=== PATIENT | male | born 1960 | race Caucasian/White ===

== ENCOUNTER 2016-10-02 18:41 | Inpatient (IN) | payer OTHER ==
[~2016-10-02 18:41] MED LIST: ROCURONIUM BROMIDE INJ 50 MG/5 ML VIAL IV ONE; SUCCINYLCHOLINE CHLORIDE INJ 200 MG/10 ML VIAL ONE
[2016-10-02] MEDS ORDERED: OXYCODONE-ACETAMINOPHEN 5-325 MG TABLET PO ONE (18:50)
[2016-10-02] MEDS ORDERED: MORPHINE SULFATE 10 MG/ML INJ IV ONE ×3 (18:50→20:38)
--- NOTE | 2016-10-02 19:04 | ER Document Report ---
ED Medical Screen (RME) - General Stated Complaint: FOOT INJURY Time Seen by Provider: 10/02/16 18:50 Notes: 56-year-old male who presents with right ankle pain and bleeding from wound after he fell off a ladder. His tetanus is up-to-date. PE: Medial right ankle laceration with ankle deformity. Bleeding controlled. I have greeted and performed a rapid initial assessment of this patient. A comprehensive ED assessment and evaluation of the patient, analysis of test results and completion of the medical decision making process will be conducted by additional ED providers.
--- NOTE | 2016-10-02 19:22 | RADIOLOGY REPORT (SQ) ---
EXAM DESCRIPTION: ANKLE RIGHT COMPLETE COMPLETED DATE/TIME: 10/02/2016 7:09 pm REASON FOR STUDY: right ankle injury COMPARISON: None. NUMBER OF VIEWS: Two views of the right ankle. LIMITATIONS: None. FINDINGS: Marked fracture dislocation. Comminuted fracture through the distal tibia with posterior displacement. Tibia is shifted medially with respect to the talar dome. Displaced medial malleolus fracture. Comminuted angulated distal fibula fracture. The fibula is angulated laterally. No defin itive talar dome fracture. Calcaneus and visualized midfoot looks intact. OTHER: No other significant finding. IMPRESSION: Severe ankle fracture dislocation. TECHNICAL DOCUMENTATION: JOB ID: [id number]
[2016-10-02] MEDS ORDERED: CEFAZOLIN 1 GM/D5W RTU 50 ML IV ONE (19:29)
[2016-10-02 20:00] LABS: ABSOLUTE BASOPHILS # (AUTO) 0.1 10^3/uL (0.0-0.2); ABSOLUTE EOSINOPHILS # (AUTO) 0.1 10^3/uL (0.0-0.6); ABSOLUTE LYMPHOCYTES (AUTO) 1.7 10^3/uL (0.5-4.7); ABSOLUTE MONOCYTES (AUTO) 0.6 10^3/uL (0.1-1.4); ABSOLUTE NEUT (AUTO) 5.7 10^3/uL (1.7-8.2); BASOPHILS % (AUTO) 0.9 % (0-2); EOSINOPHILS % (AUTO) 0.8 % (0-6); HEMATOCRIT 41.7 % (37.9-51.0); HEMOGLOBIN 13.3 g/dL (13.5-17.0); HGB HCT DIFFERENCE -1.8; LYMPHOCYTES % (AUTO) 21.3 % (13-45); MEAN CORPUSCULAR HEMOGLOBIN 27.4 pg (27.0-33.4); MEAN CORPUSCULAR HGB CONC 31.9 g/dL (32.0-36.0); MEAN CORPUSCULAR VOLUME 86 fl (80-97); MONOCYTES % (AUTO) 7.6 % (3-13); RED BLOOD COUNT 4.85 10^6/uL (4.35-5.55); RED CELL DISTRIBUTION WIDTH 13.8 % (11.5-14.0); SEGMENTED NEUTROPHILS % (AUTO) 69.4 % (42-78); WHITE BLOOD COUNT 8.2 10^3/uL (4.0-10.5)
--- NOTE | 2016-10-02 20:00 | ER Document Report ---
ED Extremity Problem, Lower - General Chief Complaint: Fall Injury Stated Complaint: FOOT INJURY Time Seen by Provider: 10/02/16 18:50 Notes: Patient fell from a ladder about 10 feet above ground just prior to arrival here in the emergency department. He is unable to bear weight on an obviously fractured right ankle. It is an open fracture with a portion of the fractured medial malleolus protruding through the skin. Patient has no other injuries. Denies any head, neck, chest, or abdomen injury. Patient denies any medical history of significance. Is on no medications. No history of heart disease. - Related Data Allergies/Adverse Reactions: No Known Allergies Allergy (Unverified 10/02/16 19:59) Past Medical History - Social History Smoking Status: Unknown if Ever Smoked Cigarette use (# per day): No Family History: Reviewed & Not Pertinent - Past Medical History Cardiac Medical History: Denies: Hx Coronary Artery Disease Endocrine Medical History: Denies: Hx Diabetes Mellitus Type 2 Review of Systems - Review of Systems Notes: REVIEW OF SYSTEMS: CONSTITUTIONAL : Denies fever. EENT: Denies eye, ear, nose or mouth or throat pain or other symptoms. CARDIOVASCULAR: Denies chest pain. RESPIRATORY: Denies cough, chest congestion, or shortness of breath. GASTROINTESTINAL: Denies abdominal pain or nausea, vomiting, or diarrhea. GENITOURINARY: Denies difficulty or painful urinating, urinary frequency, blood in urine. MUSCULOSKELETAL: Denies back or neck pain. See HPI. SKIN: Denies rash or skin lesions. NEUROLOGICAL: Denies LOC or altered mental status. Denies headache. Denies sensory loss or motor deficits. ALL OTHER SYSTEMS REVIEWED AND NEGATIVE. Physical Exam - Vital signs Vitals: Resp Pulse Ox 14 100 10/02/16 19:29 10/02/16 19:29 - Notes Notes: PHYSICAL EXAMINATION: GENERAL: Well-appearing, in apparent pain. HEAD: Atraumatic, normocephalic. EYES: Pupils equal round and reactive to light, extraocular movements intact. ENT: oropharynx clear without exudates. Moist mucous membranes. NECK: Normal range of motion, supple. LUNGS: Breath sounds clear and equal bilaterally. HEART: Regular rate and rhythm without murmurs. ABDOMEN: Soft, nontender. No guarding or rebound. BACK: No tenderness throughout entire back. EXTREMITIES: Right ankle swollen, deformed with dislocation laterally of the foot and a open 5 cm laceration over the distal medial malleolus with the bone protruding through the skin at that location. Good dorsalis pedis pulse present. NEUROLOGICAL: Normal speech, normal gait. Normal sensory, motor, and reflex exams. Awake, alert, and oriented x3. Cranial nerves normal. PSYCH: Normal mood, normal affect. SKIN: Warm, dry, no rashes. Course - Re-evaluation Re-evalutation: 10/02/16 19:[address] Hart,, acquisition associate orthopedics. He will come to see the patient and I anticipate take him to the OR. I irrigated the open wound medially with 1 L of saline and then applied wet gauze pads. Antibiotics have been started. - Vital Signs Vital signs: Temp Pulse Resp BP Pulse Ox 28 H 147/87 H 96 10/02/16 20:00 10/02/16 19:31 10/02/16 20:00 - Laboratory Result Diagrams: 10/02/16 19:00 10/02/16 19:00 Laboratory results interpreted by me: 10/02/16 10/02/16 10/02/16 19:00 19:00 19:00 Hgb 13.3 L MCHC 31.9 L APTT 23.0 L Creatinine 1.53 H Est GFR ( Amer) 57 L Est GFR (Non-Af Amer) 47 L Glucose 165 H Discharge - Discharge Clinical Impression: Fracture dislocation of right ankle Qualifiers: Encounter type: initial encounter Fracture type: open Open fracture type: open type III Qualified Code(s): S82.891C - Other fracture of right lower leg, initial encounter for open fracture type IIIA, IIIB, or IIIC Disposition: ADMITTED INPATIENT Admitting Provider: Marisa Unit Admitted: OR
[2016-10-02 20:03] LABS: PROTHROMBIN TIME 11.8 SEC (11.4-15.4)
[2016-10-02 20:10] LABS: ALANINE AMINOTRANSFERASE 29 U/L (21-72); ALBUMIN 3.9 g/dL (3.5-5.0); ALKALINE PHOSPHATASE 62 U/L (38-126); ANION GAP 11 (5-19); ASPARTATE AMINO TRANSFERASE 21 U/L (17-59); BILIRUBIN,DIRECT 0.3 mg/dL (0.0-0.4); BILIRUBIN,TOTAL 0.4 mg/dL (0.2-1.3); BLOOD UREA NITROGEN 18 mg/dL (7-20); CALCIUM 9.5 mg/dL (8.4-10.2); CARBON DIOXIDE 26 mmol/L (22-30); CHLORIDE 104 mmol/L (98-107); CREATININE RESULT 1.53 mg/dL (0.52-1.25); GLUCOSE 165 mg/dL (75-110); POTASSIUM 4.7 mmol/L (3.6-5.0); SODIUM 140.5 mmol/L (137-145); TOTAL PROTEIN 6.6 g/dL (6.3-8.2)
[2016-10-02] MEDS ORDERED: RINGERS SOLUTION,LACTATED 1,000 ML IV PRN (20:27)
[2016-10-02] MEDS ORDERED: FENTANYL CITRATE INJ/PF 250 MCG/5 ML AMPULE ONE (20:50)
[2016-10-02] MEDS ORDERED: HYDROMORPHONE HCL INJ/PF 2 MG/ML AMPULE ONE (20:50)
[2016-10-02] MEDS ORDERED: MIDAZOLAM 2 MG/2 ML INJ ONE (20:51)
[2016-10-02] MEDS ORDERED: PROPOFOL INJ 200 MG/20 ML VIAL IV ONE (20:51)
[2016-10-02] MEDS ORDERED: BACITRACIN INJ 50,000 UNIT VIAL ONE (20:51)
[2016-10-02] MEDS ORDERED: ACETAMINOPHEN 100 ML IV ONE (20:51)
[2016-10-02] MEDS ORDERED: POLYMYXIN B SULFATE INJ 500000 UNIT VIAL ONE (20:51)
--- NOTE | 2016-10-02 21:05 | PDOC H&P ---
History of Present Illness Admission Date/PCP: 10/02/16 20:23 Patient complains of: Right Ankle Injury History of Present Illness: EVANGELISTA YIN is a 56 year old male who was on a ladder and sustained a fall onto his right ankle. Patient had significant soft tissue injury and open wound along with deformity and was unable to weight-bear. He was brought immediately to the emergency room by his [id number]. While in the emergency room he received IV Ancef and the bone was found to be protruding from the skin this area was irrigated by the emergency room physician. Currently pain 6/10. Denies numbness or tingling. Past Medical History Cardiac Medical History: Denies: Coronary Artery Disease Endocrine Medical History: Denies: Diabetes Mellitus Type 2 Social History Smoking Status: Unknown if Ever Smoked - Advance Directive Resuscitation Status: Full Code Family History Family History: Reviewed & Not Pertinent Parental Family History Reviewed: Yes Children Family History Reviewed: Yes Sibling(s) Family History Reviewed.: Yes Medication/Allergy Allergies/Adverse Reactions: No Known Allergies Allergy (Unverified 10/02/16 19:59) Review of Systems All systems: as per PMH Constitutional: ABSENT: chills, fever(s), headache(s), weight gain, weight loss Eyes: ABSENT: visual disturbances Ears: ABSENT: hearing changes Cardiovascular: ABSENT: chest pain, dyspnea on exertion, edema, orthropnea, palpitations Respiratory: ABSENT: cough, hemoptysis Gastrointestinal: ABSENT: abdominal pain, constipation, diarrhea, hematemesis, hematochezia, nausea, vomiting Genitourinary: ABSENT: dysuria, hematuria Musculoskeletal: PRESENT: as per HPI Integumentary: ABSENT: rash, wounds Neurological: ABSENT: abnormal gait, abnormal speech, confusion, dizziness, focal weakness, syncope Psychiatric: ABSENT: anxiety, depression, homidical ideation, suicidal ideation Endocrine: ABSENT: cold intolerance, heat intolerance, menstrual abnormalities, polydipsia, polyuria Hematologic/Lymphatic: ABSENT: easy bleeding, easy bruising, lymphadenopathy Physical Exam Vital Signs: Temp Pulse Resp BP Pulse Ox 98.7 F 103 H 18 157/104 H 96 10/02/16 20:41 10/02/16 20:41 10/02/16 20:41 10/02/16 20:41 10/02/16 20:41 General appearance: PRESENT: no acute distress, well-developed, well-nourished Head exam: PRESENT: atraumatic, normocephalic Eye exam: PRESENT: conjunctiva pink, EOMI, PERRLA. ABSENT: scleral icterus Ear exam: PRESENT: normal external ear exam Mouth exam: PRESENT: moist, tongue midline Neck exam: PRESENT: full ROM. ABSENT: carotid bruit, JVD, lymphadenopathy, thyromegaly Respiratory exam: PRESENT: unlabored Cardiovascular exam: PRESENT: RRR. ABSENT: diastolic murmur, rubs, systolic murmur Pulses: PRESENT: +1 pedal pulses bilateral Vascular exam: PRESENT: normal capillary refill GI/Abdominal exam: PRESENT: normal bowel sounds, soft. ABSENT: distended, guarding, mass, organolmegaly, rebound, tenderness Rectal exam: PRESENT: deferred Musculoskeletal exam: PRESENT: other - Right ankle: Wet-to-dry dressing change was removed demonstrating 5 cm transverse laceration at the level of the medial malleolus bone currently not proceeding from the skin but visualized through the soft tissue injury. Intact flexion extension of the toes. Patient has hypoesthesia along the dorsum of the foot but intact sensation to light touch. Dorsalis pedis pulse one plus. Cap refill less than 2 seconds. Neurological exam: PRESENT: alert, awake, oriented to person, oriented to place , oriented to time, oriented to situation, CN II-XII grossly intact. ABSENT: motor sensory deficit Psychiatric exam: PRESENT: appropriate affect, normal mood. ABSENT: homicidal ideation, suicidal ideation Skin exam: PRESENT: dry, intact, warm. ABSENT: cyanosis, rash Results Impressions: Ankle X-Ray 10/02/16 18:50 IMPRESSION: Severe ankle fracture dislocation. Status: Image reviewed by me - I have reviewed patient's radiographs which demonstrate severely comminuted distal tibia fracture with associated segmental comminuted lateral malleolus fracture and transverse medial malleolus fracture. Assessment & Plan - Diagnosis (1) Open fracture of distal end of tibia Qualifiers: Encounter type: initial encounter Open fracture type: open type I or II Fracture morphology: pilon Fracture alignment: displaced Laterality: right Qualified Code(s): S82.871B - Displaced pilon fracture of right tibia, initial encounter for open fracture type I or II Is this a current diagnosis for this admission?: YesPlan: Given the amount of comminution at the tibial plafond this is more consistent with a Pilon fracture as opposed to actual fracture dislocation of the ankle. Given the amount of energy required to cause such a fracture patient requires emergent operative intervention to stabilize the ankle and cleansed the wound thoroughly in the operating room suite. We discussed treatment options along prognosis and risks. Patient understands he is at increased risk for posttraumatic arthritis, decreased range of motion, infection and possible worst -case scenario amputation. Currently the plan is to proceed with irrigation and debridement of the open fracture with external fixation possible open reduction internal fixation of the lateral malleolus this depends on patient's global soft tissue injury. Patient will continue Ancef for 48-72 hours. We discussed he will require repeat operative intervention for definitive fixation which may be during this admission or may require second admission. Risks and benefits of the surgical procedure have been explained to the patient including anesthetic complications, excessive bleeding, infection, injury to surrounding nerves, vessels and tendons, bruising, healing difficulties, scar formation, posttraumatic arthritis and any unforseen complication, patient has verbalized understanding and consented for the procedure. (2) Open dislocation of distal tibia Qualifiers: Encounter type: initial encounter Laterality: right Qualified Code(s): S93.04XA - Dislocation of right ankle joint, initial encounter; S91.001A - Unspecified open wound, right ankle, initial encounter Is this a current diagnosis for this admission?: Yes
[2016-10-02] MEDS ORDERED: FENTANYL CITRATE INJ/PF 100 MCG/2 ML AMPUL IV PRN ×3 (21:36)
[2016-10-02] MEDS ORDERED: DIPHENHYDRAMINE HCL 50 MG/ML VIAL IV PRN (21:36)
[2016-10-02] MEDS ORDERED: MEPERIDINE HCL/PF INJ 25 MG/1 ML DISP.SYRIN IV PRN (21:36)
[2016-10-02] MEDS ORDERED: MORPHINE SULFATE 10 MG/ML INJ IV PRN (21:36)
[2016-10-02] MEDS ORDERED: PROMETHAZINE HCL INJ 25 MG/1 ML VIAL IV PRN (21:36)
--- NOTE | 2016-10-02 22:50 | RADIOLOGY REPORT (SQ) ---
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 FLUOROSCOPY TIME: 0.7 minutes 4 images saved to PACS. TECHNIQUE: Intra-operative images acquired during surgical procedure to evaluate progress. NUMBER OF IMAGES: For LIMITATIONS: None. FINDINGS: Fluoroscopic images show reduction of the fracture/dislocation with more anatomic appearan ce. IMPRESSION: IMAGE(S) OBTAINED DURING PROCEDURE. COMMENT: Quality ID [id number]: Final reports for procedures using fluoroscopy that document radiation exp osure indices, or exposure time and number of fluorographic images (if radiation exposure indices are not available) Please consult full operative report of the attending physician for description of the procedure. TECHNICAL DOCUMENTATION: JOB ID: [id number] [employer]- All Rights Reserved
--- NOTE | 2016-10-02 22:50 | RADIOLOGY REPORT (SQ) ---
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 FLUOROSCOPY TIME: 0.7 minutes 4 images saved to PACS. TECHNIQUE: Intra-operative images acquired during surgical procedure to evaluate progress. NUMBER OF IMAGES: For LIMITATIONS: None. FINDINGS: Fluoroscopic images show reduction of the fracture/dislocation with more anatomic appearan ce. IMPRESSION: IMAGE(S) OBTAINED DURING PROCEDURE. COMMENT: Quality ID [id number]: Final reports for procedures using fluoroscopy that document radiation exp osure indices, or exposure time and number of fluorographic images (if radiation exposure indices are not available) Please consult full operative report of the attending physician for description of the procedure. TECHNICAL DOCUMENTATION: JOB ID: [id number] [employer]- All Rights Reserved
[2016-10-02] MEDS ORDERED: ONDANSETRON HCL INJ/PF 4 MG/2 ML SDV IV PRN (22:54)
--- NOTE | 2016-10-02 23:05 | Operative Report ---
Operative Report DATE OF SURGERY: 10/02/16 PREOPERATIVE DIAGNOSIS: Grade II Open Distal Tibia Fracture w/ Lateral/Medial Malleolar Fracture POSTOPERATIVE DIAGNOSIS: Same OPERATION: Excisional Debridement Right Ankle Open Fracture Dislocation. External Fixation Right Ankle SURGEON: KOSTA THAKUR ANESTHESIA: GA COMPLICATIONS: None ESTIMATED BLOOD LOSS: Minimal PROCEDURE: Indication for above procedure: 56-year-old male who fell 10 feet onto his right ankle. Patient was brought to the emergency room where he was found to have an open fracture dislocation of his ankle. Patient seen and evaluated emergency room we discussed treatment options including participation injury and severity of his injury. Risks and benefits were explained the patient patient verbalized and consented to the procedure. Procedure In Detail: Patient was seen and evaluated in the preoperative holding area. The RIGHT lower extremity was initialized and marked. Patient received Ancef IV for bacterial prophylaxis in the emergency room. Patient was taken back to the operative room where transferred to the operative table and placed under general anesthesia. Once they were adequately anesthetized a nonsterile tourniquet was placed on the lower extremity. A surgical team debriefing was performed ensuring all instrumentation was available, the surgical procedure was discussed with possible concerns reviewed. The lower extremity was prepped with Betadine prep and draped in a sterile fashion. A timeout was done identifying correct patient, procedure and extremity everyone in attendance agree with this and verbalized no concerns. The extremity was elevated the tourniquet was inflated to 300 mmHg. Patient's medial wound was measured to be 5.5 cm. There is no gross contamination however the bone was exposed. A curette was utilized to debride the edges of the medial malleolus and the fracture fragments. Dissection of the fracture fragments was not undertaken to avoid devascularization. The wound was copiously irrigated with 3 L of saline first liter had bacitracin and this was done with gravity irrigation. Once this was complete I turned my attention to external fixation. With C-arm fluoroscopy skin incision was made along the anterior aspect of the tibia blunt dissection was performed with a hemostat and a half pin was placed. The first half and described along the lateral cortex this was then removed a second half pin was placed centrally. Using the measuring device a second half pin was placed proximally once again skin incision blunt dissection was performed with a hemostat. Lateral view was obtained central placement of the tibial pins and appropriate length. I then proceeded with placement of the calcaneal pin. The distance between the medial malleolus and posterior aspect of the calcaneus was measured fdc between this point was marked fdc for this point to the posterior calcaneus second point was marked C-arm fluoroscopy was obtained confirming appropriate placement of the calcaneal pin. Skin incision was made blunt dissection with hemostat was performed calcaneal pin was placed parallel to the ankle mortise this was confirmed with C-arm fluoroscopy was obtained with the lateral side a skin incision was made blunt dissection was performed and the pin was continued laterally. Once complete I proceeded with reduction of the fracture. Two bars were placed one medial and one lateral fixated proximally and distally traction was performed and this was secured. C-arm fluoroscopy was obtained AP and lateral demonstrated appropriate length with reduction of the fracture in AP view however there was significant comminution with a sagittal split along the articular surface but the alignment between the talus and posterior malleolus fragment was maintained but to obtain better fixation and stability I then proceeded with placement of a second half pin along the central axis of the first metatarsal. C-arm fluoroscopy was obtained to confirm appropriate placement of the pins blunt dissection was performed with a hemostat and pin was placed to the appropriate length confirmed with lateral view. With placement of the stent a second bar was placed secured to the lateral border which provide any more rotational stability and successfully reduced the anterior articular fragment and a better anatomic position however it was not anatomic. Final C-arm fluoroscopy was obtained which demonstrated acceptable reduction of the ankle mortise given the nature of patient's injury appropriate alignment on AP view. I once again irrigated the medial wound. It was loosely closed with three sutures of 3-0 nylon suture however the central aspect was left open to allow drainage. The wound was then dressed with Xeroform and Kerlix. Tourniquet was then deflated patient had palpable dorsalis pedis pulse 2+ with normal capillary refill. Finally a kickstand was placed posteriorly to avoid heel irritation postoperatively. Sponge counts, instrument counts, needle counts counts were correct. Patient was then awoken from anesthesia. Transferred from the operating room table to the operating room stretcher. There was no intraoperative complications patient tolerated procedure well stable to PACU. Postoperative plan: Patient will be started on antibiotics which she will continue for 48-72 hours plan will be returned to the operating room at some juncture for final fixation will also consider possible CT scan.
[2016-10-03] MEDS ORDERED: CEFAZOLIN 2 GM/D5W RTU 50 ML IV SCH
[2016-10-03] MEDS ORDERED: CEFAZOLIN INJ 1 GM VIAL ONE (02:28)
[2016-10-03] MEDS: CEFAZOLIN 2 GM/D5W RTU 2 GM/50 ML RTUPB IV SCH ×5 (02:35→23:55)
[2016-10-03 05:12] LABS: HEMATOCRIT 33.8 % (37.9-51.0); HGB HCT DIFFERENCE -0.5; MEAN CORPUSCULAR HGB CONC 32.7 g/dL (32.0-36.0); MEAN CORPUSCULAR VOLUME 86 fl (80-97); RED BLOOD COUNT 3.96 10^6/uL (4.35-5.55); RED CELL DISTRIBUTION WIDTH 13.7 % (11.5-14.0); WHITE BLOOD COUNT 11.5 10^3/uL (4.0-10.5)
[2016-10-03 05:14] LABS: HEMOGLOBIN 11.1 g/dL (13.5-17.0)
[2016-10-03 05:21] LABS: ANION GAP 8 (5-19); BLOOD UREA NITROGEN 16 mg/dL (7-20); CALCIUM 8.2 mg/dL (8.4-10.2); CARBON DIOXIDE 24 mmol/L (22-30); CHLORIDE 104 mmol/L (98-107); GLUCOSE 155 mg/dL (75-110); POTASSIUM 4.4 mmol/L (3.6-5.0); SODIUM 136.4 mmol/L (137-145)
--- NOTE | 2016-10-03 07:55 | PDOC PROGRESS REPORT ---
Subjective Progress Note for:: 10/03/16 Subjective:: Patient seen this morning. No issues overnight. Pain controlled. Physical Exam Vital Signs: Temp Pulse Resp BP Pulse Ox 97.4 F 77 16 102/67 98 10/03/16 04:21 10/03/16 04:21 10/03/16 04:21 10/03/16 04:21 10/03/16 04:21 Intake & Output 10/02/16 10/03/16 10/04/16 06:59 06:59 06:59 Intake Total 5440 Output Total 3025 Balance 2415 General appearance: PRESENT: no acute distress Musculoskeletal exam: PRESENT: other - Right lower extremity: Bloody drainage from the medial wound. Pin sites clean/dry/intact. Dorsalis pedis pulse 2+. Cap refill less than 2 seconds. No sensory deficits. Intact flexion extension of the toes. Results Laboratory Results: 10/03/16 04:32 10/03/16 04:32 10/03/16 10/03/16 04:32 04:32 WBC 11.5 H RBC 3.96 L Hgb 11.1 L D Hct 33.8 L MCV 86 MCH 28.0 MCHC 32.7 RDW 13.7 Plt Count 193 Sodium 136.4 L Potassium 4.4 Chloride 104 Carbon Dioxide 24 Anion Gap 8 BUN 16 Creatinine 1.10 Est GFR ( Amer) > 60 Est GFR (Non-Af Amer) > 60 Glucose 155 H Calcium 8.2 L Impressions: Fluoroscopy 10/02/16 00:00 IMPRESSION: IMAGE(S) OBTAINED DURING PROCEDURE. Ankle X-Ray 10/02/16 18:50 IMPRESSION: Severe ankle fracture dislocation. Assessment & Plan - Diagnosis (1) Open fracture of distal end of tibia Qualifiers: Encounter type: initial encounter Open fracture type: open type I or II Fracture morphology: pilon Fracture alignment: displaced Laterality: right Qualified Code(s): S82.871B - Displaced pilon fracture of right tibia, initial encounter for open fracture type I or II Is this a current diagnosis for this admission?: YesPlan: Status post closed reduction external fixation with irrigation and debridement open fracture distal tibia #1 continue Ancef IV for 48 hours. #2 Xarelto for DVT prophylaxis #3 we will obtain a CT scan to further delineate intra-articular fragment. #4 anticipate final fixation on 10/05/16 (2) Open dislocation of distal tibia Qualifiers: Encounter type: initial encounter Laterality: right Qualified Code(s): S93.04XA - Dislocation of right ankle joint, initial encounter; S91.001A - Unspecified open wound, right ankle, initial encounter Is this a current diagnosis for this admission?: Yes
--- NOTE | 2016-10-03 10:17 | PDOC CONSULTATION ---
Consultation Consult Date: 10/03/16 Attending physician:: KOSTA THAKUR Consult reason:: Hyperglycemia, leukocytosis History of Present Illness Admission Date/PCP: 10/02/16 20:58 Patient complains of: Ankle pain History of Present Illness: EVANGELISTA YIN is a 56 year old male who was on a ladder and sustained a fall onto his right ankle. Patient had significant soft tissue injury and open wound along with deformity and was unable to weight-bear. He was brought immediately to the emergency room by his [id number]. While in the emergency room he received IV Ancef and the bone was found to be protruding from the skin this area was irrigated by the emergency room physician. Currently pain 6/10. Denies numbness or tingling. Patient underwent excisional debridement and external fixation on the right ankle and is going for final fixation on 10/05/2016. While in the [place] the patient was noted to have hyperglycemia and mildly elevated WBC. A consultation was made to evaluate for medical conditions. Patient denies any history of any illness. 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 Patient has a little bit of a cough but no shortness of breath or purulent expectoration. There is no shortness of breath. No dysuria urgency or frequency. Denies any hematuria. Denies any diarrhea. No sinus congestion. No headaches nor any rash. Patient is not on steroids. Past Medical History Cardiac Medical History: Reports: None Denies: Coronary Artery Disease Endocrine Medical History: Denies: Diabetes Mellitus Type 2 Psychiatric Medical History: Denies: Depression Past Surgical History Past Surgical History: Reports: None Social History Information Source: Patient Smoking Status: Never Smoker Frequency of Alcohol Use: None Hx Recreational Drug Use: No Drugs: None Hx Prescription Drug Abuse: No - Advance Directive Resuscitation Status: Full Code Family History Family History: DM Parental Family History Reviewed: Yes Children Family History Reviewed: Yes Sibling(s) Family History Reviewed.: Yes Medication/Allergy Home Medications: No Home Medications 10/03/16 Allergies/Adverse Reactions: No Known Allergies Allergy (Verified 10/02/16 21:12) Review of Systems Constitutional: ABSENT: chills, fever(s), headache(s), weight gain, weight loss Eyes: ABSENT: visual disturbances Ears: ABSENT: hearing changes Cardiovascular: ABSENT: chest pain, dyspnea on exertion, edema, orthropnea, palpitations Respiratory: PRESENT: cough - Occasional after surgery. ABSENT: hemoptysis Gastrointestinal: ABSENT: abdominal pain, constipation, diarrhea, hematemesis, hematochezia, nausea, vomiting Genitourinary: ABSENT: dysuria, hematuria Musculoskeletal: PRESENT: joint swelling - Right ankle, pain on the right ankle Integumentary: ABSENT: rash, wounds Neurological: ABSENT: abnormal gait, abnormal speech, confusion, dizziness, focal weakness, syncope Psychiatric: ABSENT: anxiety, depression, homidical ideation, suicidal ideation Endocrine: ABSENT: cold intolerance, heat intolerance, polydipsia, polyphagia, polyuria Hematologic/Lymphatic: ABSENT: easy bleeding, easy bruising Physical Exam Vital Signs: Temp Pulse Resp BP Pulse Ox 97.4 F 77 16 102/67 98 10/03/16 04:21 10/03/16 04:21 10/03/16 04:21 10/03/16 04:21 10/03/16 04:21 Intake & Output 10/02/16 10/03/16 10/04/16 06:59 06:59 06:59 Intake Total 5440 Output Total 3025 Balance 2415 General appearance: PRESENT: no acute distress, well-developed, well-nourished Head exam: PRESENT: atraumatic, normocephalic Eye exam: PRESENT: conjunctiva pink, EOMI, PERRLA. ABSENT: scleral icterus Ear exam: PRESENT: normal external ear exam Mouth exam: PRESENT: moist, neck supple, tongue midline Throat exam: ABSENT: post pharyngeal erythema, tonsillar erythema Neck exam: ABSENT: carotid bruit, JVD, lymphadenopathy, thyromegaly Respiratory exam: PRESENT: clear to auscultation cosme. ABSENT: rales, rhonchi, wheezes Cardiovascular exam: PRESENT: RRR, +S1, +S2, systolic murmur - On the aortic area. ABSENT: diastolic murmur, rubs Pulses: PRESENT: normal dorsalis pedis pul Vascular exam: PRESENT: normal capillary refill GI/Abdominal exam: PRESENT: normal bowel sounds, soft. ABSENT: distended, guarding, mass, organolmegaly, rebound, tenderness Rectal exam: PRESENT: deferred Extremities exam: PRESENT: full ROM, pedal edema - Right. ABSENT: calf tenderness, clubbing Musculoskeletal exam: PRESENT: other - Splint on the right leg Neurological exam: PRESENT: alert, awake, oriented to person, oriented to place , oriented to time, oriented to situation, CN II-XII grossly intact. ABSENT: motor sensory deficit Psychiatric exam: PRESENT: appropriate affect, normal mood. ABSENT: homicidal ideation, suicidal ideation Skin exam: PRESENT: dry, intact, warm. ABSENT: cyanosis, rash Results Laboratory Results: 10/03/16 04:32 10/03/16 04:32 10/03/16 10/03/16 04:32 04:32 WBC 11.5 H RBC 3.96 L Hgb 11.1 L D Hct 33.8 L MCV 86 MCH 28.0 MCHC 32.7 RDW 13.7 Plt Count 193 Sodium 136.4 L Potassium 4.4 Chloride 104 Carbon Dioxide 24 Anion Gap 8 BUN 16 Creatinine 1.10 Est GFR ( Amer) > 60 Est GFR (Non-Af Amer) > 60 Glucose 155 H Calcium 8.2 L Impressions: Fluoroscopy 10/02/16 00:00 IMPRESSION: IMAGE(S) OBTAINED DURING PROCEDURE. Ankle X-Ray 10/02/16 18:50 IMPRESSION: Severe ankle fracture dislocation. Assessment & Plan - Diagnosis (1) Hyperglycemia Is this a current diagnosis for this admission?: Yes (2) Leukocytosis, unspecified Qualifiers: Leukocytosis type: unspecified Qualified Code(s): D72.829 - Elevated white blood cell count, unspecified Is this a current diagnosis for this admission?: Yes (3) Heart murmur on physical examination Is this a current diagnosis for this admission?: Yes (4) Anemia Qualifiers: Anemia type: unspecified type Qualified Code(s): D64.9 - Anemia, unspecified Is this a current diagnosis for this admission?: Yes - Time Time Spent: 50 to 70 Minutes - Plan Summary Plan Summary: We will obtain a chest x-ray. We will obtain an anemia panel. Stool for occult blood would be added. Hemoglobin A1c will be done as well in the morning as well as fasting blood sugar. We will repeat WBC in the morning. Thank you so much for the consultation. We will follow the patient with you.
--- NOTE | 2016-10-03 11:04 | RADIOLOGY REPORT (SQ) ---
EXAM DESCRIPTION: CT RT LOWER EXTREMITY WITHOUT COMPLETED DATE/TIME: 10/03/2016 10:42 am REASON FOR STUDY: FINE CUT CT R ANKLE- TIB/FIB FX COMPARISON: None. TECHNIQUE: Axial imaging performed through the right ankle with reformatted coronal and sagittal dayan ging windowed for bone and soft tissues. Images saved to PACS. 3D IMAGING: Were 3D images as MIP, SSD, or volume rendering performed at the work station? Yes. All CT scanners at this facility use dose modulation, iterative reconstruction, and/or weight based d osing when appropriate to reduce radiation dose to as low as reasonably achievable (ALARA). [facility]: Dose Right [facility]: CareDose [facility]: Dose Right [facility]: Teradose 4D [facility]: [employer] LIMITATIONS: Artifact from external fixation. RADIATION DOSE: Up-to-date CT equipment and radiation dose reduction techniques were employed. CTDIv ol: 4.6 mGy. DLP: 111 mGy-cm. mGy. FINDINGS: SOFT TISSUES: No foreign body. BONES: Comminuted trimalleolar fracture with a segmental component of the distal fibula. Intra-artic ular gas and bone fragments. There is an orthopedic pin through the proximal 1st metatarsal shaft fr om a dorsal approach. Nondisplaced fracture of the lateral plantar margin of the calcaneus. MINERALIZATION: Normal. OTHER: No other significant finding. IMPRESSION: Open trimalleolar fracture status post internal external fixator. Nondisplaced fracture of the calcaneus. TECHNICAL DOCUMENTATION: JOB ID: [id number] Quality ID # [id number]: Final reports with documentation of one or more dose reduction techniques (e.g., Au tomated exposure control, adjustment of the mA and/or kV according to patient size, use of iterative reconstruction technique) 2010 [employer]- All Rights Reserved
--- NOTE | 2016-10-03 12:29 | RADIOLOGY REPORT (SQ) ---
EXAM DESCRIPTION: CHEST SINGLE VIEW COMPLETED DATE/TIME: 10/03/2016 10:22 am REASON FOR STUDY: cough COMPARISON: None. EXAM PARAMETERS: NUMBER OF VIEWS: One view. TECHNIQUE: Single frontal radiographic view of the chest acquired. RADIATION DOSE: NA LIMITATIONS: None. FINDINGS: LUNGS AND PLEURA: No opacities, masses or pneumothorax. No pleural effusion. MEDIASTINUM AND HILAR STRUCTURES: No masses. Contour normal. HEART AND VASCULAR STRUCTURES: Heart normal in size. Normal vasculature. BONES: No acute findings. HARDWARE: None in the chest. OTHER: No other significant finding. IMPRESSION: NO ACUTE RADIOGRAPHIC FINDING IN THE CHEST. TECHNICAL DOCUMENTATION: JOB ID: [id number]
[2016-10-03] MEDS: RIVAROXABAN 10 MG TABLET PO SCH (21:59)
[2016-10-04] MEDS: OXYCODONE-ACETAMINOPHEN 5-325 MG TABLET PO PRN ×4 (01:07→21:04)
[2016-10-04 05:23] LABS: HEMATOCRIT 33.1 % (37.9-51.0); HEMOGLOBIN 10.8 g/dL (13.5-17.0); HGB HCT DIFFERENCE -0.7; MEAN CORPUSCULAR HGB CONC 32.6 g/dL (32.0-36.0); MEAN CORPUSCULAR VOLUME 86 fl (80-97); RED BLOOD COUNT 3.85 10^6/uL (4.35-5.55); RED CELL DISTRIBUTION WIDTH 14.2 % (11.5-14.0); WHITE BLOOD COUNT 8.3 10^3/uL (4.0-10.5)
[2016-10-04 05:45] LABS: ANION GAP 6 (5-19); BLOOD UREA NITROGEN 13 mg/dL (7-20); CALCIUM 8.2 mg/dL (8.4-10.2); CARBON DIOXIDE 29 mmol/L (22-30); CHLORIDE 104 mmol/L (98-107); CREATININE RESULT 1.08 mg/dL (0.52-1.25); GLUCOSE 119 mg/dL (75-110); POTASSIUM 4.2 mmol/L (3.6-5.0); SODIUM 138.7 mmol/L (137-145)
[2016-10-04] MEDS: CEFAZOLIN 2 GM/D5W RTU 2 GM/50 ML RTUPB IV SCH ×3 (05:45→18:00)
[2016-10-04 06:59] LABS: FOLATE 6.85 ng/mL (>2.76)
[2016-10-04] MEDS ORDERED: DEXTROSE 40% GEL 15 GM TUBE PO PRN ×2 (07:42)
[2016-10-04] MEDS ORDERED: DEXTROSE 50%-WATER 25 GM/50 ML DISP.SYRIN IV PRN ×2 (07:42)
[2016-10-04] MEDS ORDERED: GLUCAGON,HUMAN RECOMB 1 MG INJ SUBCUT PRN (07:42)
--- NOTE | 2016-10-04 08:26 | PDOC PROGRESS REPORT ---
Subjective Subjective:: Patient seen this morning. No issues overnight. Pain controlled. Denies chest pain shortness of breath. Physical Exam Vital Signs: Temp Pulse Resp BP Pulse Ox 97.7 F 77 18 116/68 99 10/04/16 04:00 10/04/16 04:00 10/04/16 04:00 10/04/16 04:00 10/04/16 04:00 Intake & Output 10/03/16 10/04/16 10/05/16 06:59 06:59 06:59 Intake Total 5440 2251 Output Total 3025 1200 Balance 2415 1051 Weight 79.8 kg Musculoskeletal exam: PRESENT: other - Right lower extremity: Pin sites clean/ dry/intact. Dried bloody drainage from the wound medially. Dorsalis pedis pulse 2+. Cap refill less than 2 seconds. No sensory deficits. Intact flexion extension of the toes. Results Laboratory Results: 10/04/16 04:54 10/04/16 04:54 10/04/16 10/04/16 04:54 04:54 WBC 8.3 RBC 3.85 L Hgb 10.8 L Hct 33.1 L MCV 86 MCH 28.0 MCHC 32.6 RDW 14.2 H Plt Count 165 Retic Count (auto) 1.07 Absolute Retic 0.041 Sodium 138.7 Potassium 4.2 Chloride 104 Carbon Dioxide 29 Anion Gap 6 BUN 13 Creatinine 1.08 Est GFR ( Amer) > 60 Est GFR (Non-Af Amer) > 60 Glucose 119 H Calcium 8.2 L Iron 15.0 L TIBC 314 % Saturation 5 Ferritin 21.90 Vitamin B12 221.0 L Folate 6.85 Impressions: Fluoroscopy 10/02/16 00:00 IMPRESSION: IMAGE(S) OBTAINED DURING PROCEDURE. Ankle X-Ray 10/02/16 18:50 IMPRESSION: Severe ankle fracture dislocation. Chest X-Ray 10/03/16 00:00 IMPRESSION: NO ACUTE RADIOGRAPHIC FINDING IN THE CHEST. Lower Extremity CT 10/03/16 08:50 IMPRESSION: Open trimalleolar fracture status post internal external fixator. Nondisplaced fracture of the calcaneus. Assessment & Plan - Diagnosis (1) Open fracture of distal end of tibia Qualifiers: Encounter type: initial encounter Open fracture type: open type I or II Fracture morphology: pilon Fracture alignment: displaced Laterality: right Qualified Code(s): S82.871B - Displaced pilon fracture of right tibia, initial encounter for open fracture type I or II Is this a current diagnosis for this admission?: Yes (2) Open dislocation of distal tibia Qualifiers: Encounter type: initial encounter Laterality: right Qualified Code(s): S93.04XA - Dislocation of right ankle joint, initial encounter; S91.001A - Unspecified open wound, right ankle, initial encounter Is this a current diagnosis for this admission?: YesPlan: I have reviewed patient's CT scan which demonstrates comminuted intra-articular distal tibia fracture with associated lateral malleolus fracture. There is also evidence of a nondisplaced calcaneal fracture however I do not feel this requires operative intervention. Today I discussed treatment options with the patient plan will be proceed with open reduction internal fixation of his right ankle in the operating room suite tomorrow risks and benefits of the surgical procedure have been explained to the patient surgical procedure will be performed by Dr. Steven. Risks include anesthetic complications, excessive bleeding, infection, injury to surrounding nerves, vessels and tendons, bruising , healing difficulties, scar formation, posttraumatic arthritis and any unforseen complication.
--- NOTE | 2016-10-04 12:32 | PDOC PROGRESS REPORT ---
Subjective Progress Note for:: 10/04/16 Subjective:: Patient denies any pain. Physical Exam Vital Signs: Temp Pulse Resp BP Pulse Ox 98.1 F 81 16 122/73 100 10/04/16 07:22 10/04/16 07:22 10/04/16 07:22 10/04/16 07:22 10/04/16 07:22 Intake & Output 10/03/16 10/04/16 10/05/16 06:59 06:59 06:59 Intake Total 5440 2251 Output Total 3025 1200 Balance 2415 1051 Weight 79.8 kg General appearance: PRESENT: no acute distress Head exam: PRESENT: atraumatic, normocephalic Eye exam: PRESENT: conjunctiva pink. ABSENT: scleral icterus Mouth exam: PRESENT: moist, tongue midline Neck exam: ABSENT: JVD Respiratory exam: PRESENT: clear to auscultation cosme. ABSENT: rales, rhonchi, wheezes Cardiovascular exam: PRESENT: RRR. ABSENT: diastolic murmur, rubs, systolic murmur GI/Abdominal exam: PRESENT: normal bowel sounds, soft. ABSENT: distended, guarding, mass, organolmegaly, rebound, tenderness Extremities exam: PRESENT: other - Surgical pins and dressings in place on the leg. ABSENT: calf tenderness, clubbing, pedal edema Neurological exam: PRESENT: alert, awake, oriented to person, oriented to place , oriented to time, oriented to situation Psychiatric exam: PRESENT: appropriate affect Skin exam: PRESENT: other - Surgical dressings in place on the ankle. Results Laboratory Results: 10/04/16 04:54 10/04/16 04:54 10/04/16 10/04/16 04:54 04:54 WBC 8.3 RBC 3.85 L Hgb 10.8 L Hct 33.1 L MCV 86 MCH 28.0 MCHC 32.6 RDW 14.2 H Plt Count 165 Retic Count (auto) 1.07 Absolute Retic 0.041 Sodium 138.7 Potassium 4.2 Chloride 104 Carbon Dioxide 29 Anion Gap 6 BUN 13 Creatinine 1.08 Est GFR ( Amer) > 60 Est GFR (Non-Af Amer) > 60 Glucose 119 H Calcium 8.2 L Iron 15.0 L TIBC 314 % Saturation 5 Ferritin 21.90 Vitamin B12 221.0 L Folate 6.85 Impressions: Fluoroscopy 10/02/16 00:00 IMPRESSION: IMAGE(S) OBTAINED DURING PROCEDURE. Ankle X-Ray 10/02/16 18:50 IMPRESSION: Severe ankle fracture dislocation. Chest X-Ray 10/03/16 00:00 IMPRESSION: NO ACUTE RADIOGRAPHIC FINDING IN THE CHEST. Lower Extremity CT 10/03/16 08:50 IMPRESSION: Open trimalleolar fracture status post internal external fixator. Nondisplaced fracture of the calcaneus. Assessment & Plan - Diagnosis (1) Anemia Qualifiers: Anemia type: unspecified type Qualified Code(s): D64.9 - Anemia, unspecified Is this a current diagnosis for this admission?: YesPlan: Stable (2) Fracture dislocation of right ankle Qualifiers: Encounter type: initial encounter Fracture type: open Open fracture type: open type III Qualified Code(s): S82.891C - Other fracture of right lower leg, initial encounter for open fracture type IIIA, IIIB, or IIIC Is this a current diagnosis for this admission?: YesPlan: Go back to the OR tomorrow for surgery (3) Heart murmur on physical examination Is this a current diagnosis for this admission?: Yes (4) Leukocytosis, unspecified Qualifiers: Leukocytosis type: unspecified Qualified Code(s): D72.829 - Elevated white blood cell count, unspecified Is this a current diagnosis for this admission?: YesPlan: Related to the ankle fracture (5) ARF (acute renal failure) Is this a current diagnosis for this admission?: YesPlan: Resolved - Time Time Spent with patient: 25-34 minutes - Inpatient Certification Medical Necessity: Need Close Monitoring Due to Risk of Patient Decompensation
[2016-10-04] MEDS: RIVAROXABAN 10 MG TABLET PO SCH (21:04)
[2016-10-05] MEDS: CEFAZOLIN 2 GM/D5W RTU 2 GM/50 ML RTUPB IV SCH ×5 (00:11→23:36)
[2016-10-05] MEDS: OXYCODONE-ACETAMINOPHEN 5-325 MG TABLET PO PRN ×3 (03:30→21:51)
[2016-10-05 06:29] LABS: HEMATOCRIT 31.6 % (37.9-51.0); HEMOGLOBIN 10.5 g/dL (13.5-17.0); HGB HCT DIFFERENCE -0.1; MEAN CORPUSCULAR HEMOGLOBIN 28.3 pg (27.0-33.4); MEAN CORPUSCULAR HGB CONC 33.2 g/dL (32.0-36.0); MEAN CORPUSCULAR VOLUME 85 fl (80-97); RED BLOOD COUNT 3.71 10^6/uL (4.35-5.55); WHITE BLOOD COUNT 8.5 10^3/uL (4.0-10.5)
[2016-10-05 06:52] LABS: ANION GAP 9 (5-19); BLOOD UREA NITROGEN 14 mg/dL (7-20); CALCIUM 8.1 mg/dL (8.4-10.2); CARBON DIOXIDE 27 mmol/L (22-30); CHLORIDE 102 mmol/L (98-107); CREATININE RESULT 0.98 mg/dL (0.52-1.25); GLUCOSE 110 mg/dL (75-110)
[2016-10-05] MEDS ORDERED: RINGERS SOLUTION,LACTATED 1,000 ML IV PRN ×2 (07:14→07:19)
--- NOTE | 2016-10-05 09:17 | PDOC PROGRESS REPORT ---
Subjective Progress Note for:: 10/05/16 Subjective:: Without significant new complaint Physical Exam Vital Signs: Temp Pulse Resp BP Pulse Ox 36.6 C 76 18 128/69 H 100 10/05/16 07:14 10/05/16 07:14 10/05/16 07:14 10/05/16 07:14 10/05/16 07:14 Intake & Output 10/04/16 10/05/16 10/06/16 06:59 06:59 06:59 Intake Total 2251 150 Output Total 1200 300 Balance 1051 -150 Weight 79.8 kg General appearance: PRESENT: no acute distress Head exam: PRESENT: normocephalic Respiratory exam: PRESENT: unlabored Cardiovascular exam: PRESENT: RRR Vascular exam: PRESENT: normal capillary refill GI/Abdominal exam: PRESENT: soft Musculoskeletal exam: PRESENT: other - Extremity immobilized in an external fixator and wrapped with an Hiro wrap. There is brisk capillary refill to the great toe. Neurological exam: PRESENT: alert, awake, oriented to person, oriented to place , oriented to time, oriented to situation. ABSENT: motor sensory deficit Psychiatric exam: PRESENT: appropriate affect, normal mood. ABSENT: homicidal ideation, suicidal ideation Skin exam: PRESENT: dry, intact, warm. ABSENT: cyanosis, rash Results Laboratory Results: 10/05/16 05:19 10/05/16 05:19 10/05/16 10/05/16 05:19 05:19 WBC 8.5 RBC 3.71 L Hgb 10.5 L Hct 31.6 L MCV 85 MCH 28.3 MCHC 33.2 RDW 14.0 Plt Count 159 Sodium 138.0 Potassium 4.0 Chloride 102 Carbon Dioxide 27 Anion Gap 9 BUN 14 Creatinine 0.98 Est GFR ( Amer) > 60 Est GFR (Non-Af Amer) > 60 Glucose 110 Calcium 8.1 L Impressions: Fluoroscopy 10/02/16 00:00 IMPRESSION: IMAGE(S) OBTAINED DURING PROCEDURE. Ankle X-Ray 10/02/16 18:50 IMPRESSION: Severe ankle fracture dislocation. Chest X-Ray 10/03/16 00:00 IMPRESSION: NO ACUTE RADIOGRAPHIC FINDING IN THE CHEST. Lower Extremity CT 10/03/16 08:50 IMPRESSION: Open trimalleolar fracture status post internal external fixator. Nondisplaced fracture of the calcaneus. Status: Imported from PACS Assessment & Plan - Diagnosis (1) Open dislocation of distal tibia Qualifiers: Encounter type: initial encounter Laterality: right Qualified Code(s): S93.04XA - Dislocation of right ankle joint, initial encounter; S91.001A - Unspecified open wound, right ankle, initial encounter Is this a current diagnosis for this admission?: YesPlan: Plan will be to return to the operating room today for washout of the medial open wound and potentially additional internal fixation of the fibula and the distal tibia. - Time Time Spent with patient: 15-24 minutes Anticipated discharge: Home with Homehealth Within: Other
[2016-10-05] MEDS ORDERED: ONDANSETRON HCL INJ/PF 4 MG/2 ML SDV ONE (09:33)
[2016-10-05] MEDS ORDERED: METOCLOPRAMIDE HCL INJ/PF 10 MG/2 ML SDV ONE (09:33)
[2016-10-05] MEDS ORDERED: PHENYLEPHRINE HCL INJ/PF 10 MG/1 ML SDV ONE (09:33)
[2016-10-05] MEDS ORDERED: DEXAMETHASONE SOD PHOSPHATE INJ 4 MG/1 ML VIAL ONE (09:33)
[2016-10-05] MEDS ORDERED: GLYCOPYRROLATE INJ 0.4 MG/2 ML VIAL ONE (09:33)
[2016-10-05] MEDS ORDERED: FENTANYL CITRATE INJ/PF 250 MCG/5 ML AMPULE ONE (11:44)
[2016-10-05] MEDS ORDERED: PROPOFOL INJ 200 MG/20 ML VIAL IV ONE (11:45)
[2016-10-05] MEDS ORDERED: MIDAZOLAM 2 MG/2 ML INJ ONE (11:45)
[2016-10-05] MEDS ORDERED: ACETAMINOPHEN 100 ML IV ONE ×2 (11:45)
[2016-10-05] MEDS ORDERED: FENTANYL CITRATE INJ/PF 100 MCG/2 ML AMPUL IV PRN ×3 (13:13)
[2016-10-05] MEDS ORDERED: OXYCODONE-ACETAMINOPHEN 5-325 MG TABLET PO PRN ×2 (13:13)
[2016-10-05] MEDS ORDERED: DIPHENHYDRAMINE HCL 50 MG/ML VIAL IV PRN (13:13)
[2016-10-05] MEDS ORDERED: PROMETHAZINE HCL INJ 25 MG/1 ML VIAL IV PRN ×2 (13:13)
[2016-10-05] MEDS ORDERED: MORPHINE SULFATE 10 MG/ML INJ IV PRN (13:13)
[2016-10-05] MEDS ORDERED: MEPERIDINE HCL/PF INJ 25 MG/1 ML DISP.SYRIN IV PRN (13:13)
--- NOTE | 2016-10-05 13:15 | PDOC PROGRESS REPORT ---
Subjective Progress Note for:: 10/05/16 Subjective:: Patient denies any pain. Physical Exam Vital Signs: Temp Pulse Resp BP Pulse Ox 97.9 F 76 18 128/69 H 100 10/05/16 11:10 10/05/16 11:10 10/05/16 11:10 10/05/16 11:10 10/05/16 11:10 Intake & Output 10/04/16 10/05/16 10/06/16 06:59 06:59 06:59 Intake Total 2251 150 Output Total 1200 300 Balance 1051 -150 Weight 79.8 kg General appearance: PRESENT: no acute distress Eye exam: PRESENT: conjunctiva pink. ABSENT: scleral icterus Mouth exam: PRESENT: moist, tongue midline Neck exam: ABSENT: JVD Respiratory exam: PRESENT: clear to auscultation cosme. ABSENT: rales, rhonchi, wheezes Cardiovascular exam: PRESENT: RRR. ABSENT: diastolic murmur, rubs, systolic murmur GI/Abdominal exam: PRESENT: normal bowel sounds, soft. ABSENT: distended, guarding, mass, organolmegaly, rebound, tenderness Extremities exam: ABSENT: calf tenderness, clubbing, pedal edema Neurological exam: PRESENT: alert, awake, oriented to person, oriented to place , oriented to time, oriented to situation, CN II-XII grossly intact. ABSENT: motor sensory deficit Psychiatric exam: PRESENT: appropriate affect Skin exam: PRESENT: dry, intact, warm. ABSENT: cyanosis, rash Results Laboratory Results: 10/05/16 05:19 10/05/16 05:19 10/05/16 10/05/16 05:19 05:19 WBC 8.5 RBC 3.71 L Hgb 10.5 L Hct 31.6 L MCV 85 MCH 28.3 MCHC 33.2 RDW 14.0 Plt Count 159 Sodium 138.0 Potassium 4.0 Chloride 102 Carbon Dioxide 27 Anion Gap 9 BUN 14 Creatinine 0.98 Est GFR ( Amer) > 60 Est GFR (Non-Af Amer) > 60 Glucose 110 Calcium 8.1 L Impressions: Fluoroscopy 10/02/16 00:00 IMPRESSION: IMAGE(S) OBTAINED DURING PROCEDURE. Ankle X-Ray 10/02/16 18:50 IMPRESSION: Severe ankle fracture dislocation. Chest X-Ray 10/03/16 00:00 IMPRESSION: NO ACUTE RADIOGRAPHIC FINDING IN THE CHEST. Lower Extremity CT 10/03/16 08:50 IMPRESSION: Open trimalleolar fracture status post internal external fixator. Nondisplaced fracture of the calcaneus. Assessment & Plan - Diagnosis (1) Anemia Qualifiers: Anemia type: unspecified type Qualified Code(s): D64.9 - Anemia, unspecified Is this a current diagnosis for this admission?: YesPlan: Stable (2) Fracture dislocation of right ankle Qualifiers: Encounter type: initial encounter Fracture type: open Open fracture type: open type III Qualified Code(s): S82.891C - Other fracture of right lower leg, initial encounter for open fracture type IIIA, IIIB, or IIIC Is this a current diagnosis for this admission?: YesPlan: Patient is to go back to the OR today for cleanout and further work (3) Heart murmur on physical examination Is this a current diagnosis for this admission?: Yes (4) Leukocytosis, unspecified Qualifiers: Leukocytosis type: unspecified Qualified Code(s): D72.829 - Elevated white blood cell count, unspecified Is this a current diagnosis for this admission?: YesPlan: Related to the ankle fracture (5) ARF (acute renal failure) Is this a current diagnosis for this admission?: YesPlan: Resolved - Time Time Spent with patient: 25-34 minutes - Inpatient Certification Medical Necessity: Need Close Monitoring Due to Risk of Patient Decompensation
--- NOTE | 2016-10-05 14:06 | Operative Report ---
Operative Report DATE OF SURGERY: 10/05/16 PREOPERATIVE DIAGNOSIS: Grade II Open Distal Tibia Fracture w/ Lateral/Medial Malleolar Fracture POSTOPERATIVE DIAGNOSIS: Same OPERATION: Open reduction internal fixation right distal tibia fracture. open reduction internal fixation right ankle fracture manipulation and revision of right external fixator SURGEON: CASSANDRA CLEARY ANESTHESIA: GA ESTIMATED BLOOD LOSS: Minimal PROCEDURE: Patient supine on the operative table the right lower extremities prepped and draped in a sterile fashion. The existing external fixator scrub with chlorhexidine scrub brushes. Subsequently the M the limb was elevated for exsanguination tourniquet inflated 280 torr. The external fixture is modified removing the lateral bar so that there is access to the lateral malleolus. A longitudinal incision was made over the distal fibula and sharp dissection was carried incision down to the underlying fibula. This was developed subperiosteally. A long titanium Orient plate is basically using as a spanning plate across the highly comminuted fibular fracture. 4 screws were placed distally and 4 screws were placed proximally. Next a pelvic reduction forceps was placed anterior posterior across the distal fibula to reduce a gap in the fracture as well as articular incongruity. 240 cannulated screws were placed across this to maintain the distal tibia reduction. A percutaneous 4 oh screws placed through the medial malleolus to maintain the medial reduction. At this point the wounds were irrigated and stapled shut. The external fixator is reconfigured to support the existing alignment. Sterile dressing is applied and the patient's return to the PACU in satisfactory condition.
[2016-10-05] MEDS: MEPERIDINE HCL/PF INJ 25 MG/1 ML DISP.SYRIN ONE ×2 (14:19→14:24)
--- NOTE | 2016-10-05 14:27 | RADIOLOGY REPORT (SQ) ---
EXAM DESCRIPTION: ANKLE RIGHT AP/LATERAL; NO CHG FLUORO COMPLETED DATE/TIME: 10/05/2016 2:17 pm REASON FOR STUDY: RIGHT ANKLE ORIF COMPARISON: 10/02/[address] right ankle 10/03/2016 FLUOROSCOPY TIME: 0.7 minutes 6 digital C-arm images saved to PACS. TECHNIQUE: Intraoperative fluoroscopy and C-arm images LIMITATIONS: None. FINDINGS: Imaging during ORIF right lower extremity comminuted distal tibia and fibula fractures. P jasmeet see the operative report for further details IMPRESSION: Intra procedural imaging and fluoro as above COMMENT: Quality ID [id number]: Final reports for procedures using fluoroscopy that document radiation exp osure indices, or exposure time and number of fluorographic images (if radiation exposure indices are not available) TECHNICAL DOCUMENTATION: JOB ID: [id number] [employer]- All Rights Reserved
--- NOTE | 2016-10-05 14:27 | RADIOLOGY REPORT (SQ) ---
EXAM DESCRIPTION: ANKLE RIGHT AP/LATERAL; NO CHG FLUORO COMPLETED DATE/TIME: 10/05/2016 2:17 pm REASON FOR STUDY: RIGHT ANKLE ORIF COMPARISON: 10/02/[address] right ankle 10/03/2016 FLUOROSCOPY TIME: 0.7 minutes 6 digital C-arm images saved to PACS. TECHNIQUE: Intraoperative fluoroscopy and C-arm images LIMITATIONS: None. FINDINGS: Imaging during ORIF right lower extremity comminuted distal tibia and fibula fractures. P jasmeet see the operative report for further details IMPRESSION: Intra procedural imaging and fluoro as above COMMENT: Quality ID [id number]: Final reports for procedures using fluoroscopy that document radiation exp osure indices, or exposure time and number of fluorographic images (if radiation exposure indices are not available) TECHNICAL DOCUMENTATION: JOB ID: [id number] [employer]- All Rights Reserved
[2016-10-05] MEDS: RIVAROXABAN 10 MG TABLET PO SCH (21:51)
[2016-10-06] MEDS: HYDROMORPHONE HCL INJ/PF 2 MG/ML AMPULE IV PRN ×2 (03:33→22:30)
[2016-10-06] MEDS: CEFAZOLIN 2 GM/D5W RTU 2 GM/50 ML RTUPB IV SCH ×4 (05:10→23:17)
[2016-10-06 07:07] LABS: ABSOLUTE LYMPHOCYTES (AUTO) 1.4 10^3/uL (0.5-4.7); ABSOLUTE NEUT (AUTO) 5.9 10^3/uL (1.7-8.2); BASOPHILS % (AUTO) 0.5 % (0-2); EOSINOPHILS % (AUTO) 0.5 % (0-6); HEMATOCRIT 29.6 % (37.9-51.0); HEMOGLOBIN 9.7 g/dL (13.5-17.0); HGB HCT DIFFERENCE -0.5; LYMPHOCYTES % (AUTO) 16.7 % (13-45); MEAN CORPUSCULAR HEMOGLOBIN 28.1 pg (27.0-33.4); MEAN CORPUSCULAR HGB CONC 32.9 g/dL (32.0-36.0); MEAN CORPUSCULAR VOLUME 85 fl (80-97); MONOCYTES % (AUTO) 12.2 % (3-13); RED BLOOD COUNT 3.46 10^6/uL (4.35-5.55); RED CELL DISTRIBUTION WIDTH 14.4 % (11.5-14.0); SEGMENTED NEUTROPHILS % (AUTO) 70.1 % (42-78); WHITE BLOOD COUNT 8.4 10^3/uL (4.0-10.5)
--- NOTE | 2016-10-06 07:16 | PDOC PROGRESS REPORT ---
Subjective Progress Note for:: 10/06/16 Subjective:: Patient with minor complaints Physical Exam Vital Signs: Temp Pulse Resp BP Pulse Ox 36.5 C 86 17 130/72 H 100 10/06/16 00:20 10/06/16 00:20 10/06/16 00:20 10/06/16 00:20 10/06/16 00:20 Intake & Output 10/05/16 10/06/16 10/07/16 06:59 06:59 06:59 Intake Total 150 3540 Output Total 300 560 Balance -150 2980 General appearance: PRESENT: no acute distress Head exam: PRESENT: normocephalic Eye exam: PRESENT: EOMI Respiratory exam: PRESENT: unlabored Cardiovascular exam: PRESENT: RRR Vascular exam: PRESENT: normal capillary refill GI/Abdominal exam: PRESENT: soft Musculoskeletal exam: PRESENT: other - Right lower extremity dressing with serosanguineous drainage from the calcaneal region. Pins appear dry. Capillary refill. Sensory examination is intact to light touch. Results Laboratory Results: 10/06/16 06:40 10/06/16 06:40 WBC 8.4 RBC 3.46 L Hgb 9.7 L Hct 29.6 L MCV 85 MCH 28.1 MCHC 32.9 RDW 14.4 H Plt Count 186 Seg Neutrophils % 70.1 Lymphocytes % 16.7 Monocytes % 12.2 Eosinophils % 0.5 Basophils % 0.5 Absolute Neutrophils 5.9 Absolute Lymphocytes 1.4 Absolute Monocytes 1.0 Absolute Eosinophils 0.0 Absolute Basophils 0.0 Impressions: Chest X-Ray 10/03/16 00:00 IMPRESSION: NO ACUTE RADIOGRAPHIC FINDING IN THE CHEST. Lower Extremity CT 10/03/16 08:50 IMPRESSION: Open trimalleolar fracture status post internal external fixator. Nondisplaced fracture of the calcaneus. Ankle X-Ray 10/05/16 00:00 IMPRESSION: Intra procedural imaging and fluoro as above Fluoroscopy 10/05/16 00:00 IMPRESSION: Intra procedural imaging and fluoro as above Status: Imported from PACS Assessment & Plan - Diagnosis (1) Open dislocation of distal tibia Qualifiers: Encounter type: initial encounter Laterality: right Qualified Code(s): S93.04XA - Dislocation of right ankle joint, initial encounter; S91.001A - Unspecified open wound, right ankle, initial encounter Is this a current diagnosis for this admission?: YesPlan: Status post additional open reduction internal fixation of right distal leg fracture. Plan will be for mobilization today with physical therapy in a nonweightbearing basis. - Time Time Spent with patient: 15-24 minutes Anticipated discharge: Home with Homehealth Within: within 48 hours
[2016-10-06 07:22] LABS: ANION GAP 7 (5-19); BLOOD UREA NITROGEN 14 mg/dL (7-20); CALCIUM 8.1 mg/dL (8.4-10.2); CARBON DIOXIDE 28 mmol/L (22-30); CHLORIDE 103 mmol/L (98-107); CREATININE RESULT 0.93 mg/dL (0.52-1.25); GLUCOSE 109 mg/dL (75-110); POTASSIUM 4.1 mmol/L (3.6-5.0); SODIUM 137.9 mmol/L (137-145)
[2016-10-06] MEDS: OXYCODONE-ACETAMINOPHEN 5-325 MG TABLET PO PRN ×2 (10:57→17:39)
--- NOTE | 2016-10-06 11:24 | PDOC PROGRESS REPORT ---
Subjective Progress Note for:: 10/06/16 Subjective:: Patient denies any pain. Physical Exam Vital Signs: Temp Pulse Resp BP Pulse Ox 97.8 F 98 16 150/81 H 99 10/06/16 07:32 10/06/16 07:32 10/06/16 07:32 10/06/16 07:32 10/06/16 07:32 Intake & Output 10/05/16 10/06/16 10/07/16 06:59 06:59 06:59 Intake Total 150 3540 Output Total 300 560 Balance -150 2980 General appearance: PRESENT: no acute distress Eye exam: PRESENT: conjunctiva pink. ABSENT: scleral icterus Mouth exam: PRESENT: moist, tongue midline Neck exam: ABSENT: JVD Respiratory exam: PRESENT: clear to auscultation cosme. ABSENT: rales, rhonchi, wheezes Cardiovascular exam: PRESENT: RRR. ABSENT: diastolic murmur, rubs, systolic murmur GI/Abdominal exam: PRESENT: normal bowel sounds, soft. ABSENT: distended, guarding, mass, organolmegaly, rebound, tenderness Extremities exam: PRESENT: other - Fixators in place on his leg Neurological exam: PRESENT: alert, awake, oriented to person, oriented to place , oriented to time, oriented to situation, CN II-XII grossly intact. ABSENT: motor sensory deficit Psychiatric exam: PRESENT: appropriate affect Skin exam: PRESENT: dry, intact, warm. ABSENT: cyanosis, rash Results Laboratory Results: 10/06/16 06:40 10/06/16 06:40 10/06/16 10/06/16 06:40 06:40 WBC 8.4 RBC 3.46 L Hgb 9.7 L Hct 29.6 L MCV 85 MCH 28.1 MCHC 32.9 RDW 14.4 H Plt Count 186 Seg Neutrophils % 70.1 Lymphocytes % 16.7 Monocytes % 12.2 Eosinophils % 0.5 Basophils % 0.5 Absolute Neutrophils 5.9 Absolute Lymphocytes 1.4 Absolute Monocytes 1.0 Absolute Eosinophils 0.0 Absolute Basophils 0.0 Sodium 137.9 Potassium 4.1 Chloride 103 Carbon Dioxide 28 Anion Gap 7 BUN 14 Creatinine 0.93 Est GFR ( Amer) > 60 Est GFR (Non-Af Amer) > 60 Glucose 109 Calcium 8.1 L Impressions: Chest X-Ray 10/03/16 00:00 IMPRESSION: NO ACUTE RADIOGRAPHIC FINDING IN THE CHEST. Lower Extremity CT 10/03/16 08:50 IMPRESSION: Open trimalleolar fracture status post internal external fixator. Nondisplaced fracture of the calcaneus. Ankle X-Ray 10/05/16 00:00 IMPRESSION: Intra procedural imaging and fluoro as above Fluoroscopy 10/05/16 00:00 IMPRESSION: Intra procedural imaging and fluoro as above Assessment & Plan - Diagnosis (1) Anemia Qualifiers: Anemia type: unspecified type Qualified Code(s): D64.9 - Anemia, unspecified Is this a current diagnosis for this admission?: YesPlan: Stable (2) Fracture dislocation of right ankle Qualifiers: Encounter type: initial encounter Fracture type: open Open fracture type: open type III Qualified Code(s): S82.891C - Other fracture of right lower leg, initial encounter for open fracture type IIIA, IIIB, or IIIC Is this a current diagnosis for this admission?: YesPlan: The patient had surgery yesterday and will start physical therapy today per orthopedic surgery (3) Heart murmur on physical examination Is this a current diagnosis for this admission?: Yes (4) Leukocytosis, unspecified Qualifiers: Leukocytosis type: unspecified Qualified Code(s): D72.829 - Elevated white blood cell count, unspecified Is this a current diagnosis for this admission?: YesPlan: Related to the ankle fracture (5) ARF (acute renal failure) Is this a current diagnosis for this admission?: YesPlan: Resolved - Time Time Spent with patient: 25-34 minutes - Inpatient Certification Medical Necessity: Need Close Monitoring Due to Risk of Patient Decompensation
[2016-10-06] MEDS: RIVAROXABAN 10 MG TABLET PO SCH (21:33)
[2016-10-07] MEDS: OXYCODONE-ACETAMINOPHEN 5-325 MG TABLET PO PRN ×4 (05:01→23:31)
[2016-10-07] MEDS: CEFAZOLIN 2 GM/D5W RTU 2 GM/50 ML RTUPB IV SCH ×4 (05:01→23:31)
--- NOTE | 2016-10-07 06:57 | PDOC PROGRESS REPORT ---
Subjective Progress Note for:: 10/07/16 Subjective:: Patient denies any pain. Physical Exam Vital Signs: Temp Pulse Resp BP Pulse Ox 36.8 C 88 19 129/71 H 97 10/07/16 00:00 10/07/16 00:00 10/07/16 00:00 10/07/16 00:00 10/07/16 00:00 Intake & Output 10/05/16 10/06/16 10/07/16 06:59 06:59 06:59 Intake Total 150 3540 1390 Output Total 785 979 1097 Balance -150 2980 40 Weight 81.3 kg General appearance: PRESENT: no acute distress Head exam: PRESENT: normocephalic Respiratory exam: PRESENT: unlabored Cardiovascular exam: PRESENT: RRR Pulses: PRESENT: +1 pedal pulses bilateral Vascular exam: PRESENT: normal capillary refill GI/Abdominal exam: PRESENT: soft Rectal exam: PRESENT: deferred Extremities exam: PRESENT: other - Right lower extremity external fixator intact. There is some serosanguineous drainage in the calcaneal region that is presumably gravity related. Distal neurovascular examination is intact with modest edema about the forefoot. Neurological exam: PRESENT: alert, awake, oriented to person, oriented to place , oriented to time, oriented to situation. ABSENT: motor sensory deficit Psychiatric exam: PRESENT: appropriate affect, normal mood. ABSENT: homicidal ideation, suicidal ideation Skin exam: PRESENT: dry, intact, warm. ABSENT: cyanosis, rash Results Laboratory Results: 10/06/16 06:40 10/06/16 06:40 10/06/16 10/06/16 06:40 06:40 WBC 8.4 RBC 3.46 L Hgb 9.7 L Hct 29.6 L MCV 85 MCH 28.1 MCHC 32.9 RDW 14.4 H Plt Count 186 Seg Neutrophils % 70.1 Lymphocytes % 16.7 Monocytes % 12.2 Eosinophils % 0.5 Basophils % 0.5 Absolute Neutrophils 5.9 Absolute Lymphocytes 1.4 Absolute Monocytes 1.0 Absolute Eosinophils 0.0 Absolute Basophils 0.0 Sodium 137.9 Potassium 4.1 Chloride 103 Carbon Dioxide 28 Anion Gap 7 BUN 14 Creatinine 0.93 Est GFR ( Amer) > 60 Est GFR (Non-Af Amer) > 60 Glucose 109 Calcium 8.1 L Impressions: Chest X-Ray 10/03/16 00:00 IMPRESSION: NO ACUTE RADIOGRAPHIC FINDING IN THE CHEST. Lower Extremity CT 10/03/16 08:50 IMPRESSION: Open trimalleolar fracture status post internal external fixator. Nondisplaced fracture of the calcaneus. Ankle X-Ray 10/05/16 00:00 IMPRESSION: Intra procedural imaging and fluoro as above Fluoroscopy 10/05/16 00:00 IMPRESSION: Intra procedural imaging and fluoro as above Status: Imported from PACS Assessment & Plan - Diagnosis (1) Open dislocation of distal tibia Qualifiers: Encounter type: initial encounter Laterality: right Qualified Code(s): S93.04XA - Dislocation of right ankle joint, initial encounter; S91.001A - Unspecified open wound, right ankle, initial encounter Is this a current diagnosis for this admission?: YesPlan: Patient ambulated 40 feet with physical therapy yesterday. Tentative plan will be for ongoing physical therapy today and discharge home tomorrow to his brother 's home. Social work to set up home health nursing and home health physical therapy. - Time Time Spent with patient: 15-24 minutes Anticipated discharge: Home with Homehealth Within: within 24 hours
--- NOTE | 2016-10-07 13:51 | PDOC PROGRESS REPORT ---
Subjective Progress Note for:: 10/07/16 Subjective:: Patient denies any pain. Physical Exam Vital Signs: Temp Pulse Resp BP Pulse Ox 98.0 F 98 21 H 148/77 H 100 10/07/16 11:18 10/07/16 11:18 10/07/16 11:18 10/07/16 11:18 10/07/16 11:18 Intake & Output 10/06/16 10/07/16 10/08/16 06:59 06:59 06:59 Intake Total 3540 1390 Output Total 560 1350 Balance 2980 40 Weight 81.3 kg General appearance: PRESENT: no acute distress Eye exam: PRESENT: conjunctiva pink. ABSENT: scleral icterus Mouth exam: PRESENT: moist, tongue midline Neck exam: ABSENT: JVD Respiratory exam: PRESENT: clear to auscultation cosme. ABSENT: rales, rhonchi, wheezes Cardiovascular exam: PRESENT: RRR. ABSENT: diastolic murmur, rubs, systolic murmur GI/Abdominal exam: PRESENT: normal bowel sounds, soft. ABSENT: distended, guarding, mass, organolmegaly, rebound, tenderness Extremities exam: PRESENT: other - Right leg with surgical pins in place. ABSENT: calf tenderness, clubbing, pedal edema Neurological exam: PRESENT: alert, awake, oriented to person, oriented to place , oriented to time, oriented to situation, CN II-XII grossly intact. ABSENT: motor sensory deficit Psychiatric exam: PRESENT: appropriate affect Skin exam: PRESENT: other - Patient had surgical dressings and pins in place in the right leg Results Laboratory Results: 10/06/16 06:40 10/06/16 06:40 Impressions: Chest X-Ray 10/03/16 00:00 IMPRESSION: NO ACUTE RADIOGRAPHIC FINDING IN THE CHEST. Lower Extremity CT 10/03/16 08:50 IMPRESSION: Open trimalleolar fracture status post internal external fixator. Nondisplaced fracture of the calcaneus. Ankle X-Ray 10/05/16 00:00 IMPRESSION: Intra procedural imaging and fluoro as above Fluoroscopy 10/05/16 00:00 IMPRESSION: Intra procedural imaging and fluoro as above Assessment & Plan - Diagnosis (1) Anemia Qualifiers: Anemia type: unspecified type Qualified Code(s): D64.9 - Anemia, unspecified Is this a current diagnosis for this admission?: YesPlan: Stable (2) Fracture dislocation of right ankle Qualifiers: Encounter type: initial encounter Fracture type: open Open fracture type: open type III Qualified Code(s): S82.891C - Other fracture of right lower leg, initial encounter for open fracture type IIIA, IIIB, or IIIC Is this a current diagnosis for this admission?: YesPlan: External fixators in place. getting physical therapy (3) Heart murmur on physical examination Is this a current diagnosis for this admission?: Yes (4) Leukocytosis, unspecified Qualifiers: Leukocytosis type: unspecified Qualified Code(s): D72.829 - Elevated white blood cell count, unspecified Is this a current diagnosis for this admission?: YesPlan: Related to the ankle fracture (5) ARF (acute renal failure) Is this a current diagnosis for this admission?: YesPlan: Resolved - Time Time Spent with patient: 25-34 minutes - Inpatient Certification Medical Necessity: Need Close Monitoring Due to Risk of Patient Decompensation
[2016-10-07] MEDS: RIVAROXABAN 10 MG TABLET PO SCH (21:41)
[2016-10-08] MEDS: OXYCODONE-ACETAMINOPHEN 5-325 MG TABLET PO PRN ×3 (05:57→23:06)
[2016-10-08] MEDS: CEFAZOLIN 2 GM/D5W RTU 2 GM/50 ML RTUPB IV SCH ×4 (05:57→23:05)
[2016-10-08] MEDS: RIVAROXABAN 10 MG TABLET PO SCH (21:28)
[2016-10-09] MEDS: CEFAZOLIN 2 GM/D5W RTU 2 GM/50 ML RTUPB IV SCH ×2 (05:07→12:05)
[2016-10-09] MEDS: OXYCODONE-ACETAMINOPHEN 5-325 MG TABLET PO PRN ×2 (05:08→12:05)
--- NOTE | 2016-10-09 11:25 | Progress Note ---
Provider Note Provider Note: Patient has done well postoperatively. Hospitalist service will sign off. Please call if you have any further questions.
--- NOTE | 2016-10-09 15:44 | PDOC PROGRESS REPORT ---
Subjective Progress Note for:: 10/08/16 Subjective:: Patient resting comfortably in bed. Physical Exam Vital Signs: Temp Pulse Resp BP Pulse Ox 36.8 C 99 18 136/78 H 99 10/09/16 11:33 10/09/16 11:33 10/09/16 11:33 10/09/16 11:33 10/09/16 11:33 Intake & Output 10/08/16 10/09/16 10/10/16 06:59 06:59 06:59 Intake Total 1468 500 Output Total 3153 1080 Balance -1682 -580 Weight 79.4 kg 79.4 kg General appearance: PRESENT: no acute distress Adult Front & Back Image: 1 - Dressing is dry with some shadowing at the level of the ankle. External fixator seems to be in place. Patient is neurovascularly intact distally with normal postoperative swelling. Results Laboratory Results: 10/06/16 06:40 10/06/16 06:40 Impressions: Chest X-Ray 10/03/16 00:00 IMPRESSION: NO ACUTE RADIOGRAPHIC FINDING IN THE CHEST. Lower Extremity CT 10/03/16 08:50 IMPRESSION: Open trimalleolar fracture status post internal external fixator. Nondisplaced fracture of the calcaneus. Ankle X-Ray 10/05/16 00:00 IMPRESSION: Intra procedural imaging and fluoro as above Fluoroscopy 10/05/16 00:00 IMPRESSION: Intra procedural imaging and fluoro as above Assessment & Plan - Plan Summary Plan Summary: Patient status post I&D and ex-fix of open trimalleolar ankle fracture with subsequent ORIF. Patient's pain is adequately controlled. Patient just needs a walker commode and some pain medication on discharge. Discussed with Dr. Steven and okay to discharge this weekend.
[2016-10-09 16:02] VITALS: BP 128/69
--- NOTE | 2016-11-14 06:28 | PDOC DISCHARGE SUMMARY ---
General - Admit/Disc Date/PCP Admission Date/Primary Care Provider: 10/02/16 20:58 Discharge Date: 10/08/16 - Discharge Diagnosis (1) Open dislocation of distal tibia Is this a current diagnosis for this admission?: Yes - Additional Information Resuscitation Status: Full Code Discharge Diet: As Tolerated Discharge Activity: Balance Activity w/Rest, Other Home Medications: No Home Medications 10/03/16 History of Present Illness History of Present Illness: EVANGELISTA YIN is a 56 year old male for ladder sustaining an open right distal tib-fib fracture Hospital Course Hospital Course: Patient initially taken to the operating room by Dr. plunkett and underwent irrigation debridement and application of external fixture. He is returned to the floor in satisfactory condition. He was subsequently taken to the operating room by Dr. Steven and underwent a modification of the external fixator and an open reduction internal fixation of the tibial plafond fracture. The patient tolerated this without complication Physical Exam Vital Signs: Temp Pulse Resp BP Pulse Ox 36.8 C 99 18 128/69 H 99 10/09/16 15:57 10/09/16 15:57 10/09/16 15:57 10/09/16 15:57 10/09/16 15:57 General appearance: PRESENT: mild distress Head exam: PRESENT: normocephalic Eye exam: PRESENT: EOMI Respiratory exam: PRESENT: unlabored Cardiovascular exam: PRESENT: RRR Pulses: PRESENT: +1 pedal pulses bilateral Vascular exam: PRESENT: normal capillary refill GI/Abdominal exam: PRESENT: soft Rectal exam: PRESENT: deferred Extremities exam: PRESENT: other Neurological exam: PRESENT: alert, awake, oriented to person, oriented to place , oriented to time, oriented to situation. ABSENT: motor sensory deficit Psychiatric exam: PRESENT: appropriate affect, normal mood. ABSENT: homicidal ideation, suicidal ideation Skin exam: PRESENT: dry, intact, warm. ABSENT: cyanosis, rash Results Laboratory Results: 10/06/16 06:40 10/06/16 06:40 Impressions: Chest X-Ray 10/03/16 00:00 IMPRESSION: NO ACUTE RADIOGRAPHIC FINDING IN THE CHEST. Lower Extremity CT 10/03/16 08:50 IMPRESSION: Open trimalleolar fracture status post internal external fixator. Nondisplaced fracture of the calcaneus. Ankle X-Ray 10/05/16 00:00 IMPRESSION: Intra procedural imaging and fluoro as above Fluoroscopy 10/05/16 00:00 IMPRESSION: Intra procedural imaging and fluoro as above Status: Imported from PACS Plan Discharge Plan: To be discharged on a nonweightbearing amatory basis on the right lower extremity and return to see Dr. Steven in the [facility] for surgery in 2 weeks.
== END 2016-10-09 16:50 | disposition home health service (06) | DRG 465 ==
LOC: ER 18:41 → EH 20:23 → UNDOADMIN 20:23 → EH 20:58 → 4N 23:25
PROVIDERS: ADMIT Orthopaedic Surgery; ATTEND Orthopaedic Surgery
PROC: 0QSG35Z Reposition Right Tibia with External Fixation Device, Percutaneous Approach (ICD-10-PCS; 2016-10-02)
PROC: 0JBQ0ZZ Excision of Right Foot Subcutaneous Tissue and Fascia, Open Approach (ICD-10-PCS; principal; 2016-10-02 20:45)
PROC: 0QSG04Z Reposition Right Tibia with Internal Fixation Device, Open Approach (ICD-10-PCS; 2016-10-05)
DX: S82.841B Displaced bimalleolar fracture of right lower leg, initial encounter for open fracture type I or II (principal); S82.871B Displaced pilon fracture of right tibia, initial encounter for open fracture type I or II; S92.001A Unspecified fracture of right calcaneus, initial encounter for closed fracture; W11.XXXA Fall on and from ladder, initial encounter; Y93.9 Activity, unspecified; Y92.9 Unspecified place or not applicable; Y99.9 Unspecified external cause status
CPT/HCPCS: 01470; 01480; 36415; 71010; 80048; 80053; 82607; 82728; 82746; 83036; 83540; 83550; 85025; 85027; 85045; 85610; 85730; 86850; 86900; 86901; 96365; 99284; C1713; C1769; J0131; J0330; J0690; J1100; J1170; J2175; J2250; J2270; J2370; J2405; J2704; J2765; J3010; J3490; USED 10/8

== ENCOUNTER 2016-11-29 07:35 | Day surgery (SDC) | payer OTHER ==
[2016-11-23 11:31] LABS: APPEARANCE,URINE CLEAR; BILIRUBIN,URINE NEGATIVE (NEGATIVE); GLUCOSE, URINE NEGATIVE (NEGATIVE); KETONES,URINE NEGATIVE (NEGATIVE); LEUKOCYTE ESTERASE,URINE NEGATIVE (NEGATIVE); NITRITE,URINE NEGATIVE (NEGATIVE); PROTEIN,URINE NEGATIVE (NEGATIVE); URINE SPECIFIC GRAVITY 1.008; UROBILINOGEN,URINE NEGATIVE mg/dL (<2.0)
[2016-11-23 11:31] LABS: ABSOLUTE LYMPHOCYTES (AUTO) 1.2 10^3/uL (0.5-4.7); ABSOLUTE MONOCYTES (AUTO) 0.4 10^3/uL (0.1-1.4); ABSOLUTE NEUT (AUTO) 2.8 10^3/uL (1.7-8.2); BASOPHILS % (AUTO) 0.8 % (0-2); EOSINOPHILS % (AUTO) 0.6 % (0-6); HEMATOCRIT 36.3 % (37.9-51.0); HEMOGLOBIN 12.2 g/dL (13.5-17.0); HGB HCT DIFFERENCE 0.3; LYMPHOCYTES % (AUTO) 27.3 % (13-45); MEAN CORPUSCULAR HEMOGLOBIN 27.7 pg (27.0-33.4); MEAN CORPUSCULAR HGB CONC 33.5 g/dL (32.0-36.0); MEAN CORPUSCULAR VOLUME 83 fl (80-97); MONOCYTES % (AUTO) 8.6 % (3-13); RED BLOOD COUNT 4.38 10^6/uL (4.35-5.55); SEGMENTED NEUTROPHILS % (AUTO) 62.7 % (42-78); WHITE BLOOD COUNT 4.5 10^3/uL (4.0-10.5)
[2016-11-23 12:04] LABS: ANION GAP 10 (5-19); BLOOD UREA NITROGEN 16 mg/dL (7-20); CALCIUM 9.7 mg/dL (8.4-10.2); CARBON DIOXIDE 27 mmol/L (22-30); CHLORIDE 103 mmol/L (98-107); GLUCOSE 106 mg/dL (75-110); POTASSIUM 4.5 mmol/L (3.6-5.0); SODIUM 139.6 mmol/L (137-145)
--- NOTE | 2016-11-23 12:22 | RADIOLOGY REPORT (SQ) ---
EXAM DESCRIPTION: CHEST PA/LAT COMPLETED DATE/TIME: 11/23/2016 12:04 pm REASON FOR STUDY: PRE OP COMPARISON: None. EXAM PARAMETERS: NUMBER OF VIEWS: two views TECHNIQUE: Digital Frontal and Lateral radiographic views of the chest acquired. RADIATION DOSE: NA LIMITATIONS: none FINDINGS: LUNGS AND PLEURA: No opacities, masses or pneumothorax. No pleural effusion. MEDIASTINUM AND HILAR STRUCTURES: No masses or contour abnormalities. HEART AND VASCULAR STRUCTURES: Heart normal size. No evidence for failure. BONES: No acute findings. HARDWARE: None in the chest. OTHER: No other significant finding. IMPRESSION: NO SIGNIFICANT RADIOGRAPHIC FINDING IN THE CHEST. TECHNICAL DOCUMENTATION: JOB ID: [id number] [employer]- All Rights Reserved
--- NOTE | 2016-11-23 21:48 | EKG REPORT ---
SEVERITY:- NORMAL ECG - SINUS RHYTHM : Confirmed by: Linda Lynn 23-Nov-2016 21:47:06
[~2016-11-29 07:35] MED LIST changes: +BUPIVACAINE HCL 0.5 % INJ/PF 30 ML SDV ONE; +CEFAZOLIN 2 GM/D5W RTU 2 GM/50 ML RTUPB IV PRN; +LACTATED RINGERS 1000 ML IV PRN; +LIDOCAINE 0.5% INJ-PF (5 MG/ML) 50 ML SDV SUBCUT PRN; -ROCURONIUM BROMIDE INJ 50 MG/5 ML VIAL IV ONE; -SUCCINYLCHOLINE CHLORIDE INJ 200 MG/10 ML VIAL ONE
[2016-11-29] MEDS ORDERED: PROPOFOL INJ 200 MG/20 ML VIAL IV ONE (09:19)
[2016-11-29] MEDS ORDERED: FENTANYL CITRATE INJ/PF 100 MCG/2 ML AMPUL ONE (09:19)
[2016-11-29] MEDS ORDERED: MIDAZOLAM 2 MG/2 ML INJ ONE (09:19)
[2016-11-29] MEDS ORDERED: ACETAMINOPHEN 100 ML IV ONE (09:19)
[2016-11-29] MEDS ORDERED: LIDOCAINE 1% INJ-PF (10 MG/ML) 30 ML SDV ONE (09:43)
[2016-11-29] MEDS ORDERED: MORPHINE SULFATE 10 MG/ML INJ IV PRN ×2 (09:58→10:51)
[2016-11-29] MEDS ORDERED: MEPERIDINE HCL/PF INJ 25 MG/1 ML DISP.SYRIN IV PRN (09:58)
[2016-11-29] MEDS ORDERED: PROMETHAZINE HCL INJ 25 MG/1 ML VIAL IV PRN ×2 (09:58)
[2016-11-29] MEDS ORDERED: FENTANYL CITRATE INJ/PF 100 MCG/2 ML AMPUL IV PRN ×3 (09:58)
[2016-11-29] MEDS ORDERED: OXYCODONE-ACETAMINOPHEN 5-325 MG TABLET PO PRN ×2 (09:58)
[2016-11-29] MEDS ORDERED: DIPHENHYDRAMINE HCL 50 MG/ML VIAL IV PRN (09:58)
[2016-11-29] MEDS ORDERED: ONDANSETRON HCL INJ/PF 4 MG/2 ML SDV IV PRN (10:51)
--- NOTE | 2016-11-29 11:08 | PDOC DISCHARGE SUMMARY ---
Discharge Summary (SDC) - Discharge Final Diagnosis: Removal Hardware Right Ankle Date of Surgery: 11/29/16 Discharge Date: 11/29/16 Condition: Good Treatment or Instructions: Schedule Follow Up w/ Dr. Osvaldo Cunningham @ [facility] for [facility] to be seen in 10-14 days or as scheduled [place]: [place]: [place]: Ice and elevate Keep splint clean/dry/intact. If your fingers become numb please unwrap the Hiro wrap but leave the splint in place, if the sensation does not return within 30 minutes please return to the emergency department. May begin partial weight bearing on the right lower extremity Please use ibuprofen (Motrin or Advil) 600-800 mg every 8 hours as needed for pain or fever. You may also use acetaminophen (Tylenol) 1000 mg every 4-6 hours as needed for pain or fever. Please be aware that many medications contain acetaminophen, do not exceed a total of 1000 mg of acetaminophen every 6 hours. If ibuprofen and acetaminophen are not sufficient for your pain you may take the Percocet. Please be aware that the Percocet does contain Tylenol. Stool softener of choice when on pain medication. Discharge Diet: As Tolerated Respiratory Treatments at Home: Deep Breathing/Coughing Report the Following to Your Physician Immediately: Fever over 101 Degrees, Unusual Bleeding, Redness, Swelling, Warmth, Increased Soreness, Drainage-Yellow
--- NOTE | 2016-11-29 11:17 | Operative Report ---
Operative Report DATE OF SURGERY: 11/29/16 PREOPERATIVE DIAGNOSIS: Retained hardware right ankle status post open fracture dislocation with placement of external fixation. POSTOPERATIVE DIAGNOSIS: Above plus exostosis right ankle OPERATION: Removal of external fixator right ankle. Removal of deep lag screw right ankle. Excision exostosis right ankle SURGEON: KOSTA THAKUR ANESTHESIA: LMAC COMPLICATIONS: None ESTIMATED BLOOD LOSS: Minimal PROCEDURE: Indication for above procedure: 56-year-old male who sustained a open fracture dislocation of his right ankle. He subsequently underwent irrigation debridement and external fixation of the right distal tibia and fibula fractures emergently. He was then taken back to the operating room approximately 48 hours later for definitive fixation of his intra-articular fracture and fibula fractures. Patient had radiographs regularly at my office which demonstrated increased evidence of osseous consolidation at that point given the longevity the decision was made to proceed with removal of hardware which included external fixation device and possible deep hardware as needed. Procedure In Detail: Patient was seen and evaluated in the preoperative holding area. The RIGHT lower extremity was initialized and marked. Patient received 2g of Ancef IV for bacterial prophylaxis. Patient was taken back to the operative room where transferred to the operative table and placed under MAC anesthesia. Once they were adequately anesthetized a nonsterile tourniquet was placed on the lower extremity. A surgical team debriefing was performed ensuring all instrumentation was available, the surgical procedure was discussed with possible concerns reviewed. A timeout was done identifying correct patient, procedure and extremity everyone in attendance agree with this and verbalized no concerns. The external fixation device and half pins were removed without any issues. The external fixator holes were then irrigated with Betadine and compression was held until the pin holes were dry. I palpated medially at the area of concern and consider this to be more likely exostosis as opposed to hardware which I confirmed with C arm fluoroscopy. Thus the right lower extremity was then prepped with Betadine. Extremity was elevated and tourniquet was inflated to 200 mmHg. At the area of the medial exostosis 5 cc of 0.5% Marcaine and 1% lidocaine 50: 50 mixture was injected a second area was injected at the anterior to posterior screw which could be causing patient irritation posteriorly as well. A small skin incision was made over the exostosis which was removed with a rondure until there is no residual evidence of tenting of the skin or irritation. I then made a skin incision over the most medial anterior to posterior lag screw blunt dissection was performed until the screw was identified the screw was then removed in its entirety. These wounds were copiously irrigated with normal saline. Skin was closed with interrupted 3-0 nylon suture. Wound was dressed with Xeroform 4 x 4's and patient was placed in a posterior splint. Sponge counts, instrument counts, needle counts counts were correct. Patient was then awoken from anesthesia. Transferred from the operating room table to the operating room stretcher. There was no intraoperative complications patient tolerated procedure well stable to PACU. Postoperative plan: Patient will follow-up in the office in 2 weeks for wound check and suture removal. Patient will begin partial weightbearing with the splint.
[2016-11-29] MEDS: OXYCODONE-ACETAMINOPHEN 5-325 MG TABLET PO PRN ×2 (11:44→11:47)
[2016-11-29 13:02] VITALS: BP 145/89
--- NOTE | 2016-11-29 15:03 | RADIOLOGY REPORT (SQ) ---
EXAM DESCRIPTION: NO CHG FLUORO; ANKLE RIGHT AP/LATERAL COMPLETED DATE/TIME: 11/29/2016 11:25 am REASON FOR STUDY: HARDWARE REMOVAL RT ANKLE ASSISTED W/ FLUORO IN OR COMPARISON: 10/05/2016 FLUOROSCOPY TIME: 0.2 minutes 4 Images saved to PACS RADIATION DOSE: 0.37 mGy LIMITATIONS: None. PROCEDURE: Intraoperative image. FINDINGS: Intraoperative image shows a compression plate on the distal fibula and 3 screws in the ti karrie. IMPRESSION: Intraoperative images. COMMENT: PQRS [id number]: Fluoroscopy time of the procedure is documented in the report. TECHNICAL DOCUMENTATION: JOB ID: [id number] [employer]- All Rights Reserved
--- NOTE | 2016-11-29 15:03 | RADIOLOGY REPORT (SQ) ---
EXAM DESCRIPTION: NO CHG FLUORO; ANKLE RIGHT AP/LATERAL COMPLETED DATE/TIME: 11/29/2016 11:25 am REASON FOR STUDY: HARDWARE REMOVAL RT ANKLE ASSISTED W/ FLUORO IN OR COMPARISON: 10/05/2016 FLUOROSCOPY TIME: 0.2 minutes 4 Images saved to PACS RADIATION DOSE: 0.37 mGy LIMITATIONS: None. PROCEDURE: Intraoperative image. FINDINGS: Intraoperative image shows a compression plate on the distal fibula and 3 screws in the ti karrie. IMPRESSION: Intraoperative images. COMMENT: [id number]: Fluoroscopy time of the procedure is documented in the report. TECHNICAL DOCUMENTATION: JOB ID: [id number] [facility] [employer]- All Rights Reserved
== END 2016-11-29 13:10 | disposition home or self-care (01) ==
LOC: OROUT 07:35
PROVIDERS: ATTEND Orthopaedic Surgery
PROC: 0QPG04Z Removal of Internal Fixation Device from Right Tibia, Open Approach (ICD-10-PCS; 2016-11-29)
PROC: 0QPJ04Z Removal of Internal Fixation Device from Right Fibula, Open Approach (ICD-10-PCS; principal; 2016-11-29 09:30)
DX: S82.301B Unspecified fracture of lower end of right tibia, initial encounter for open fracture type I or II (principal); X58.XXXA Exposure to other specified factors, initial encounter; Z47.2 Encounter for removal of internal fixation device
CPT/HCPCS: 93005; 36415; 85025; 80048; 81001; 73600; 71020; 93010; 20680; J2250; J3010; J3490; J2704; J0690; J0131; 01480

== ENCOUNTER 2018-12-16 07:07 | Emergency (ER) | payer SELFPAY ==
[2018-12-16] MEDS ORDERED: KETOROLAC TROMETHAMINE 60 MG/2 ML SDV IM ONE (07:45)
[2018-12-16] MEDS ORDERED: DEXAMETHASONE SOD PHOS INJ 10 MG/1 ML VIAL IM ONE (07:45)
--- NOTE | 2018-12-16 07:48 | ER Document Report ---
HPI - HPI Time Seen by Provider: 12/16/18 07:28 Pain Level: 2 Notes: Patient is an otherwise healthy 58-year-old male presenting to the emergency department chief complaint of left lower back pain that radiates down his left leg. Patient reports a few days ago he was doing some heavy lifting when the pain started. He denies any urinary or bowel incontinence, denies any urinary retention, denies any saddle anesthesia or fever. Patient has not taken any medications for symptoms. Past Medical History - General Information source: Patient - Social History Smoking Status: Never Smoker Family History: Reviewed & Not Pertinent, DM - Medical History Medical History: Negative - Past Medical History Cardiac Medical History: Denies: Hx Coronary Artery Disease, Hx Heart Attack, Hx Hypertension Pulmonary Medical History: Denies: Hx Asthma, Hx Bronchitis, Hx COPD, Hx Pneumonia Neurological Medical History: Denies: Hx Cerebrovascular Accident, Hx Seizures Endocrine Medical History: Denies: Hx Diabetes Mellitus Type 2 Musculoskeletal Medical History: Denies Hx Arthritis Psychiatric Medical History: Denies: Hx Depression Surgical Hx: Negative - Immunizations Hx Diphtheria, Pertussis, Tetanus Vaccination: Yes Vertical Provider Document - CONSTITUTIONAL Notes: PHYSICAL EXAMINATION: GENERAL: Well-appearing, well-nourished and in no acute distress. HEAD: Atraumatic, normocephalic. EYES: Pupils equal round extraocular movements intact, conjunctiva are normal. ENT: Nares patent NECK: Normal range of motion LUNGS: No respiratory distress Musculoskeletal: Normal range of motion, tenderness to palpation left lumbar paraspinous area, no vertebral tenderness, step-off or deformity. NEUROLOGICAL: Normal speech, normal gait. PSYCH: Normal mood, normal affect. SKIN: Warm, Dry, normal turgor, no rashes or lesions noted. - INFECTION CONTROL TRAVEL OUTSIDE OF THE [place] IN LAST 30 DAYS: No Course - Re-evaluation Re-evalutation: Patient's history as well as physical examination are most consistent with lumbar back strain with sciatica. This was discussed with the patient. We will start with conservative treatment. Patient will follow-up with primary care. Based on history and physical, I have a very low suspicion of a concerning etiology of pain including epidural compression syndrome, spinal infection, transverse myelitis, malignancy, abdominal aortic aneurysm, renal colic, acute lower extremity claudication, neurogenic claudication, ankylosing spondylitis, or other intra-abdominal process. Due to absence of concerning risk factors in history and physical as well as absence of rapidly progressive, severe, or bilateral symptoms, will defer imaging at this point. The patient's emergency department workup and current diagnosis were explained to the patient and or family. Follow-up instructions were provided. Medications if prescribed were discussed. Instructions for when to return to the emergency department including specific worrisome symptoms were discussed with the patient and/or family. - Vital Signs Vital signs: Temp Pulse Resp BP Pulse Ox 98.2 F 88 16 155/80 H 97 12/16/18 07:15 12/16/18 07:15 12/16/18 07:15 12/16/18 07:15 12/16/18 07:15 Discharge - Discharge Clinical Impression: Low back pain Qualifiers: Chronicity: acute Back pain laterality: left Sciatica presence: with sciatica Sciatica laterality: sciatica of left side Qualified Code(s): M54.42 - Lumbago with sciatica, left side Condition: Stable Disposition: HOME, SELF-CARE Additional Instructions: You have been seen in the Emergency Department (ED) today for back pain. Your workup and exam have not shown any acute abnormalities and you are likely suffering from muscle strain or possible problems with your discs, but there is no treatment that will fix your symptoms at this time. Please take the medications that have been prescribed as directed. Continue taking Aleve 600 mg every 6 hours. Apply heat to the area as often as you are able. Continue to keep active and avoid prolonged periods of bed rest. Please follow up with your doctor as soon as possible regarding today's ED visit and your back pain. Return to the ED for worsening back pain, fever, weakness or numbness of either leg, or if you develop either (1) an inability to urinate or have bowel movements, or (2) loss of your ability to control your bathroom functions (if you start having "accidents"), or if you develop other new symptoms that concern you.concern you. [facility], call them Monday to schedule an appointment. Return to the emergency department for any new or worsening symptoms we are happy to reevaluate you. Prescriptions: Hydrocodone Bit/Acetaminophen [Hydrocodon-Acetaminophen 5-325] 1 each PO Q6H #12 tablet Methocarbamol [Robaxin 750 mg Tablet] 750 mg PO Q6H #20 tablet
[2018-12-16 08:56] VITALS: BP 147/84
== END 2018-12-16 08:57 | disposition home or self-care (01) ==
LOC: ER 07:07
DX: M54.42 Lumbago with sciatica, left side (principal); M79.605 Pain in left leg; X50.0XXA Overexertion from strenuous movement or load, initial encounter
CPT/HCPCS: J1885; J1100; 96372; 99283